=== PATIENT | female | born 1955 | race Two or more races ===

== ENCOUNTER 2020-02-08 14:36 | Outpatient (CLI) | payer MEDICARE | END 2020-02-08 23:59 | disposition home or self-care (01) | LOC: MSC 14:36 | PROVIDERS: ATTEND Internal Medicine | DX: I12.9 Hypertensive chronic kidney disease with stage 1 through stage 4 chronic kidney disease, or unspecified chronic kidney disease (principal); E11.22 Type 2 diabetes mellitus with diabetic chronic kidney disease; N18.4 Chronic kidney disease, stage 4 (severe); Z79.84 Long term (current) use of oral hypoglycemic drugs; K74.60 Unspecified cirrhosis of liver; J32.9 Chronic sinusitis, unspecified; R11.0 Nausea; F32.9 Major depressive disorder, single episode, unspecified; K21.9 Gastro-esophageal reflux disease without esophagitis; M35.00 Sjogren syndrome, unspecified; M81.0 Age-related osteoporosis without current pathological fracture; M19.90 Unspecified osteoarthritis, unspecified site; D64.9 Anemia, unspecified; E04.9 Nontoxic goiter, unspecified; R42 Dizziness and giddiness; Z79.899 Other long term (current) drug therapy ==

== ENCOUNTER 2020-07-25 13:19 | Outpatient (CLI) | payer MEDICARE, OTHER | END 2020-07-25 23:59 | disposition home or self-care (01) | LOC: MSC 13:19 | PROVIDERS: ATTEND Internal Medicine | DX: Z51.89 Encounter for other specified aftercare (principal); G47.00 Insomnia, unspecified; K74.69 Other cirrhosis of liver; E11.22 Type 2 diabetes mellitus with diabetic chronic kidney disease; I12.9 Hypertensive chronic kidney disease with stage 1 through stage 4 chronic kidney disease, or unspecified chronic kidney disease; N18.4 Chronic kidney disease, stage 4 (severe); J32.9 Chronic sinusitis, unspecified; M05.20 Rheumatoid vasculitis with rheumatoid arthritis of unspecified site; Z74.09 Other reduced mobility; D64.9 Anemia, unspecified; E04.9 Nontoxic goiter, unspecified; R42 Dizziness and giddiness; K21.9 Gastro-esophageal reflux disease without esophagitis; G60.9 Hereditary and idiopathic neuropathy, unspecified ==

== ENCOUNTER 2020-08-29 14:21 | Outpatient (CLI) | payer MEDICARE, OTHER ==
[2020-08-29 15:28] LABS: BASOPHILS % (AUTO) 0.6 % (0.0-2.0); EOSINOPHILS % (AUTO) 1.8 % (0.0-6.0); HEMATOCRIT 35 % (33-45); LYMPHOCYTES # (AUTO) 0.8 /CMM (0.8-4.8); LYMPHOCYTES % (AUTO) 14.1 % (20.0-44.0); MEAN CORPUSCULAR HGB CONC 34 g/dl (31.0-36.0); MEAN CORPUSCULAR VOLUME 89 fL (82-100); MONOCYTES # (AUTO) 0.6 /CMM (0.1-1.30); MONOCYTES % (AUTO) 10.4 % (2.0-12.0); NEUTROPHILS # (AUTO) 4.3 /CMM (1.8-8.9); NEUTROPHILS % (AUTO) 73.1 % (43.0-81.0); PLATELET COUNT (AUTO) 131 /CMM (150-450); RED BLOOD CELL COUNT(AUTO) 3.98 MIL/uL (4.0-5.2); WHITE BLOOD COUNT (AUTO) 5.8 K/uL (4.3-11.0)
[2020-08-29 15:47] LABS: ALBUMIN 3.7 g/dL (3.4-5.0); BILIRUBIN,TOTAL 0.3 mg/dL (0.2-1.0); CALCIUM, SERUM 9.2 mg/dL (8.5-10.1); CREATININE 2.2 mg/dL (0.6-1.3); PHOSPHORUS 3.5 mg/dL (2.5-4.9); POTASSIUM 4.9 mmol/L (3.5-5.1); TOTAL PROTEIN, SERUM 7.5 g/dL (6.4-8.2)
== END 2020-08-29 23:59 | disposition home or self-care (01) ==
LOC: MSC 14:21
PROVIDERS: ATTEND Internal Medicine
DX: G47.00 Insomnia, unspecified (principal); F32.9 Major depressive disorder, single episode, unspecified; E11.22 Type 2 diabetes mellitus with diabetic chronic kidney disease; I12.9 Hypertensive chronic kidney disease with stage 1 through stage 4 chronic kidney disease, or unspecified chronic kidney disease; N18.4 Chronic kidney disease, stage 4 (severe); Z79.84 Long term (current) use of oral hypoglycemic drugs; K74.60 Unspecified cirrhosis of liver; K21.9 Gastro-esophageal reflux disease without esophagitis; M81.0 Age-related osteoporosis without current pathological fracture; M35.00 Sjogren syndrome, unspecified; R11.0 Nausea; J32.9 Chronic sinusitis, unspecified; I77.6 Arteritis, unspecified; E04.9 Nontoxic goiter, unspecified; R42 Dizziness and giddiness; Z79.899 Other long term (current) drug therapy
CPT/HCPCS: 36415; 80053; 82306; 83036; 83970; 84100; 85025; 85652; G0463

== ENCOUNTER 2020-09-05 13:30 | Outpatient (CLI) | payer MEDICARE, OTHER | END 2020-09-05 23:59 | disposition home or self-care (01) | LOC: MSC 13:30 | PROVIDERS: ATTEND Internal Medicine | DX: G47.00 Insomnia, unspecified (principal); F32.9 Major depressive disorder, single episode, unspecified; E11.22 Type 2 diabetes mellitus with diabetic chronic kidney disease; I12.9 Hypertensive chronic kidney disease with stage 1 through stage 4 chronic kidney disease, or unspecified chronic kidney disease; N18.4 Chronic kidney disease, stage 4 (severe); Z79.84 Long term (current) use of oral hypoglycemic drugs; K74.60 Unspecified cirrhosis of liver; K21.9 Gastro-esophageal reflux disease without esophagitis; M35.00 Sjogren syndrome, unspecified; M81.0 Age-related osteoporosis without current pathological fracture; R11.0 Nausea; J32.9 Chronic sinusitis, unspecified; I77.6 Arteritis, unspecified; D64.9 Anemia, unspecified; E04.9 Nontoxic goiter, unspecified; R42 Dizziness and giddiness; Z79.899 Other long term (current) drug therapy ==

== ENCOUNTER 2020-12-01 10:59 | Outpatient (CLI) | payer MEDICARE, OTHER | END 2020-12-01 23:59 | disposition home or self-care (01) | LOC: MSC 10:59 | PROVIDERS: ATTEND Internal Medicine | DX: G62.9 Polyneuropathy, unspecified (principal); G47.00 Insomnia, unspecified; E11.22 Type 2 diabetes mellitus with diabetic chronic kidney disease; I12.9 Hypertensive chronic kidney disease with stage 1 through stage 4 chronic kidney disease, or unspecified chronic kidney disease; N18.4 Chronic kidney disease, stage 4 (severe); Z79.84 Long term (current) use of oral hypoglycemic drugs; K74.60 Unspecified cirrhosis of liver; F32.9 Major depressive disorder, single episode, unspecified; K21.9 Gastro-esophageal reflux disease without esophagitis; M35.00 Sjogren syndrome, unspecified; M81.0 Age-related osteoporosis without current pathological fracture; R11.0 Nausea; J32.9 Chronic sinusitis, unspecified; I77.6 Arteritis, unspecified; D64.9 Anemia, unspecified; Z79.899 Other long term (current) drug therapy ==

== ENCOUNTER 2020-12-15 03:00 | Outpatient (CLI) | payer MEDICARE, OTHER | END 2020-12-15 23:59 | disposition home or self-care (01) | LOC: MSC 03:00 | PROVIDERS: ATTEND Internal Medicine | DX: E11.22 Type 2 diabetes mellitus with diabetic chronic kidney disease (principal); I12.9 Hypertensive chronic kidney disease with stage 1 through stage 4 chronic kidney disease, or unspecified chronic kidney disease; N18.4 Chronic kidney disease, stage 4 (severe); Z79.84 Long term (current) use of oral hypoglycemic drugs; G62.9 Polyneuropathy, unspecified; G47.00 Insomnia, unspecified; K74.60 Unspecified cirrhosis of liver; F32.9 Major depressive disorder, single episode, unspecified; K21.9 Gastro-esophageal reflux disease without esophagitis; M35.00 Sjogren syndrome, unspecified; M81.0 Age-related osteoporosis without current pathological fracture; R11.0 Nausea; J32.9 Chronic sinusitis, unspecified; I77.6 Arteritis, unspecified; D64.9 Anemia, unspecified; E04.9 Nontoxic goiter, unspecified; R42 Dizziness and giddiness; Z79.899 Other long term (current) drug therapy ==

== ENCOUNTER 2020-12-22 08:44 | Outpatient (CLI) | payer MEDICARE, OTHER ==
[2020-12-22 09:17] LABS: BASOPHILS % (AUTO) 0.7 % (0.0-2.0); EOSINOPHILS % (AUTO) 3.5 % (0.0-6.0); HEMATOCRIT 37 % (33-45); HEMOGLOBIN 12.6 g/dL (11.5-14.8); LYMPHOCYTES # (AUTO) 0.8 /CMM (0.8-4.8); LYMPHOCYTES % (AUTO) 13.6 % (20.0-44.0); MEAN CORPUSCULAR HGB CONC 34 g/dl (31.0-36.0); MEAN CORPUSCULAR VOLUME 91 fL (82-100); MONOCYTES # (AUTO) 0.6 /CMM (0.1-1.30); MONOCYTES % (AUTO) 9.6 % (2.0-12.0); NEUTROPHILS # (AUTO) 4.2 /CMM (1.8-8.9); NEUTROPHILS % (AUTO) 72.6 % (43.0-81.0); PLATELET COUNT (AUTO) 121 /CMM (150-450); RED BLOOD CELL COUNT(AUTO) 4.07 MIL/uL (4.0-5.2); WHITE BLOOD COUNT (AUTO) 5.8 K/uL (4.3-11.0)
[2020-12-22 10:01] LABS: URINE TOTAL PROTEIN 25.7 mg/dL (0-11.9)
[2020-12-22 10:23] LABS: ALBUMIN 3.7 g/dL (3.4-5.0); BILIRUBIN,TOTAL 0.4 mg/dL (0.2-1.0); CALCIUM, SERUM 9.4 mg/dL (8.5-10.1); CREATININE 2.2 mg/dL (0.6-1.3); MAGNESIUM 2.2 mg/dL (1.8-2.4); PHOSPHORUS 3.5 mg/dL (2.5-4.9); POTASSIUM 4.9 mmol/L (3.5-5.1); TOTAL PROTEIN, SERUM 7.6 g/dL (6.4-8.2)
[2020-12-22 11:49] LABS: THYROID STIMULATING HORMONE 0.698 uIU/mL (0.358-3.74)
== END 2020-12-22 23:59 | disposition home or self-care (01) ==
LOC: LAB 08:44
PROVIDERS: ATTEND Internal Medicine
DX: K21.9 Gastro-esophageal reflux disease without esophagitis (principal); D64.9 Anemia, unspecified; K74.60 Unspecified cirrhosis of liver; Z79.899 Other long term (current) drug therapy
CPT/HCPCS: 36415; 80053-TC; 83735-TC; 84100-TC; 84133-TC; 84155-TC; 84300-TC; 84443-TC; 85025-TC

== ENCOUNTER 2021-01-19 10:12 | Outpatient (CLI) | payer MEDICARE, OTHER | END 2021-01-19 23:59 | disposition home or self-care (01) | LOC: MSC 10:12 | PROVIDERS: ATTEND Internal Medicine | DX: E11.22 Type 2 diabetes mellitus with diabetic chronic kidney disease (principal); I12.9 Hypertensive chronic kidney disease with stage 1 through stage 4 chronic kidney disease, or unspecified chronic kidney disease; N18.4 Chronic kidney disease, stage 4 (severe); Z79.84 Long term (current) use of oral hypoglycemic drugs; G62.9 Polyneuropathy, unspecified; G47.00 Insomnia, unspecified; K74.60 Unspecified cirrhosis of liver; F32.9 Major depressive disorder, single episode, unspecified; K21.9 Gastro-esophageal reflux disease without esophagitis; M35.00 Sjogren syndrome, unspecified; M81.0 Age-related osteoporosis without current pathological fracture; R11.0 Nausea; J32.9 Chronic sinusitis, unspecified; I77.6 Arteritis, unspecified; D64.9 Anemia, unspecified; E04.9 Nontoxic goiter, unspecified; Z79.899 Other long term (current) drug therapy ==

== ENCOUNTER 2021-02-21 11:20 | Outpatient (CLI) | payer MEDICARE, OTHER ==
[2021-02-21 12:39] LABS: ALBUMIN 3.8 g/dL (3.4-5.0); BILIRUBIN,TOTAL 0.5 mg/dL (0.2-1.0); CALCIUM, SERUM 9.1 mg/dL (8.5-10.1); CREATININE 2.1 mg/dL (0.6-1.3); POTASSIUM 4.6 mmol/L (3.5-5.1); TOTAL PROTEIN, SERUM 7.4 g/dL (6.4-8.2)
== END 2021-02-21 23:59 | disposition home or self-care (01) ==
LOC: MSC 11:20
PROVIDERS: ATTEND Internal Medicine
DX: R20.0 Anesthesia of skin (principal); B00.1 Herpesviral vesicular dermatitis; E11.22 Type 2 diabetes mellitus with diabetic chronic kidney disease; I12.9 Hypertensive chronic kidney disease with stage 1 through stage 4 chronic kidney disease, or unspecified chronic kidney disease; N18.4 Chronic kidney disease, stage 4 (severe); Z79.84 Long term (current) use of oral hypoglycemic drugs; G62.9 Polyneuropathy, unspecified; G47.00 Insomnia, unspecified; K74.60 Unspecified cirrhosis of liver; F32.9 Major depressive disorder, single episode, unspecified; K21.9 Gastro-esophageal reflux disease without esophagitis; M81.0 Age-related osteoporosis without current pathological fracture; J32.9 Chronic sinusitis, unspecified; I77.6 Arteritis, unspecified; E04.9 Nontoxic goiter, unspecified
CPT/HCPCS: 36415; 80053; 83036; G0463

== ENCOUNTER 2021-03-09 14:30 | Outpatient (CLI) | payer MEDICARE, OTHER | END 2021-03-09 23:59 | disposition home or self-care (01) | LOC: MSC 14:30 | PROVIDERS: ATTEND Internal Medicine | DX: R20.0 Anesthesia of skin (principal); B00.1 Herpesviral vesicular dermatitis; E11.22 Type 2 diabetes mellitus with diabetic chronic kidney disease; I12.9 Hypertensive chronic kidney disease with stage 1 through stage 4 chronic kidney disease, or unspecified chronic kidney disease; N18.4 Chronic kidney disease, stage 4 (severe); Z79.84 Long term (current) use of oral hypoglycemic drugs; E11.40 Type 2 diabetes mellitus with diabetic neuropathy, unspecified; G47.00 Insomnia, unspecified; K74.60 Unspecified cirrhosis of liver; F32.9 Major depressive disorder, single episode, unspecified; K21.9 Gastro-esophageal reflux disease without esophagitis; M35.00 Sjogren syndrome, unspecified; M81.0 Age-related osteoporosis without current pathological fracture; R11.0 Nausea; J32.9 Chronic sinusitis, unspecified; I77.6 Arteritis, unspecified; D64.9 Anemia, unspecified; E04.9 Nontoxic goiter, unspecified; R42 Dizziness and giddiness; Z79.899 Other long term (current) drug therapy ==

== ENCOUNTER 2021-03-15 09:24 | Outpatient (CLI) | payer MEDICARE, OTHER ==
[2021-03-15 10:15] LABS: CALCIUM, SERUM 8.7 mg/dL (8.5-10.1); POTASSIUM 5.1 mmol/L (3.5-5.1)
[2021-03-15 10:30] LABS: C-REACTIVE PROTEIN 0.3 mg/dL (0.0-0.9)
== END 2021-03-15 23:59 | disposition home or self-care (01) ==
LOC: LAB 09:24
PROVIDERS: ATTEND Internal Medicine
DX: I10 Essential (primary) hypertension (principal); K21.9 Gastro-esophageal reflux disease without esophagitis
CPT/HCPCS: 36415; 80048-TC; 85652-TC; 86140-TC

== ENCOUNTER 2021-04-06 10:30 | Outpatient (CLI) | payer MEDICARE, OTHER | END 2021-04-06 23:59 | disposition home or self-care (01) | LOC: MSC 10:30 | PROVIDERS: ATTEND Internal Medicine | DX: E11.22 Type 2 diabetes mellitus with diabetic chronic kidney disease (principal); I12.9 Hypertensive chronic kidney disease with stage 1 through stage 4 chronic kidney disease, or unspecified chronic kidney disease; N18.4 Chronic kidney disease, stage 4 (severe); Z79.84 Long term (current) use of oral hypoglycemic drugs; R20.0 Anesthesia of skin; B00.1 Herpesviral vesicular dermatitis; E11.40 Type 2 diabetes mellitus with diabetic neuropathy, unspecified; G47.00 Insomnia, unspecified; K74.60 Unspecified cirrhosis of liver; F32.9 Major depressive disorder, single episode, unspecified; K21.9 Gastro-esophageal reflux disease without esophagitis; M35.00 Sjogren syndrome, unspecified; M81.0 Age-related osteoporosis without current pathological fracture; R11.0 Nausea; J32.9 Chronic sinusitis, unspecified; I77.6 Arteritis, unspecified; R42 Dizziness and giddiness; Z79.899 Other long term (current) drug therapy ==

== ENCOUNTER 2021-05-02 09:26 | Outpatient (CLI) | payer MEDICARE, OTHER | END 2021-05-02 23:59 | disposition home or self-care (01) | LOC: MSC 09:26 | PROVIDERS: ATTEND Internal Medicine | DX: E79.0 Hyperuricemia without signs of inflammatory arthritis and tophaceous disease (principal); E11.22 Type 2 diabetes mellitus with diabetic chronic kidney disease; I12.9 Hypertensive chronic kidney disease with stage 1 through stage 4 chronic kidney disease, or unspecified chronic kidney disease; N18.4 Chronic kidney disease, stage 4 (severe); Z79.84 Long term (current) use of oral hypoglycemic drugs; R20.0 Anesthesia of skin; E11.40 Type 2 diabetes mellitus with diabetic neuropathy, unspecified; G47.00 Insomnia, unspecified; K74.60 Unspecified cirrhosis of liver; F32.9 Major depressive disorder, single episode, unspecified; K21.9 Gastro-esophageal reflux disease without esophagitis; M81.0 Age-related osteoporosis without current pathological fracture; R11.0 Nausea; J32.9 Chronic sinusitis, unspecified; I77.6 Arteritis, unspecified; D64.9 Anemia, unspecified; E04.9 Nontoxic goiter, unspecified; R42 Dizziness and giddiness; Z79.899 Other long term (current) drug therapy ==

== ENCOUNTER 2021-05-16 09:10 | Outpatient (CLI) | payer MEDICARE, OTHER ==
[2021-05-16 10:30] LABS: CALCIUM, SERUM 8.8 mg/dL (8.5-10.1); CREATININE 1.9 mg/dL (0.6-1.3); POTASSIUM 4.8 mmol/L (3.5-5.1)
[2021-05-16 10:40] LABS: C-REACTIVE PROTEIN 0.5 mg/dL (0.0-0.9)
[2021-05-16 10:42] LABS: ALBUMIN 3.6 g/dL (3.4-5.0); BILIRUBIN,TOTAL 0.5 mg/dL (0.2-1.0); PHOSPHORUS 2.8 mg/dL (2.5-4.9); TOTAL PROTEIN, SERUM 7.2 g/dL (6.4-8.2)
== END 2021-05-16 23:59 | disposition home or self-care (01) ==
LOC: LAB 09:10
PROVIDERS: ATTEND Internal Medicine
DX: E11.22 Type 2 diabetes mellitus with diabetic chronic kidney disease (principal); N18.4 Chronic kidney disease, stage 4 (severe)
CPT/HCPCS: 36415; 80053-TC; 83735-TC; 84100-TC; 85652-TC; 86140-TC

== ENCOUNTER 2021-05-23 09:16 | Outpatient (CLI) | payer MEDICARE, OTHER | END 2021-05-23 23:59 | disposition home or self-care (01) | LOC: MSC 09:16 | PROVIDERS: ATTEND Internal Medicine | DX: R20.0 Anesthesia of skin (principal); M54.50 Low back pain, unspecified; R11.0 Nausea; K21.9 Gastro-esophageal reflux disease without esophagitis; I12.9 Hypertensive chronic kidney disease with stage 1 through stage 4 chronic kidney disease, or unspecified chronic kidney disease; E11.22 Type 2 diabetes mellitus with diabetic chronic kidney disease; N18.4 Chronic kidney disease, stage 4 (severe); Z79.84 Long term (current) use of oral hypoglycemic drugs; G62.9 Polyneuropathy, unspecified; G47.00 Insomnia, unspecified; K74.60 Unspecified cirrhosis of liver; F32.9 Major depressive disorder, single episode, unspecified; M35.00 Sjogren syndrome, unspecified; M81.0 Age-related osteoporosis without current pathological fracture; J32.9 Chronic sinusitis, unspecified; I77.6 Arteritis, unspecified; D64.9 Anemia, unspecified; E04.9 Nontoxic goiter, unspecified; R42 Dizziness and giddiness; Z79.899 Other long term (current) drug therapy | CPT/HCPCS: 36415; 84550; G0463 ==

== ENCOUNTER 2021-05-29 11:28 | Outpatient (CLI) | payer MEDICARE, OTHER | END 2021-05-29 23:59 | disposition home or self-care (01) | LOC: MRI 11:28 | PROVIDERS: ATTEND Internal Medicine | DX: M47.27 Other spondylosis with radiculopathy, lumbosacral region (principal); M51.17 Intervertebral disc disorders with radiculopathy, lumbosacral region; M48.07 Spinal stenosis, lumbosacral region | CPT/HCPCS: 72148-TC ==

== ENCOUNTER 2021-06-06 09:18 | Outpatient (CLI) | payer MEDICARE, OTHER | END 2021-06-06 23:59 | disposition home or self-care (01) | LOC: MSC 09:18 | PROVIDERS: ATTEND Internal Medicine | DX: R11.0 Nausea (principal); R10.12 Left upper quadrant pain; K21.9 Gastro-esophageal reflux disease without esophagitis; M48.061 Spinal stenosis, lumbar region without neurogenic claudication; R20.0 Anesthesia of skin; E79.0 Hyperuricemia without signs of inflammatory arthritis and tophaceous disease; I12.9 Hypertensive chronic kidney disease with stage 1 through stage 4 chronic kidney disease, or unspecified chronic kidney disease; E11.22 Type 2 diabetes mellitus with diabetic chronic kidney disease; N18.4 Chronic kidney disease, stage 4 (severe); Z79.84 Long term (current) use of oral hypoglycemic drugs; E11.40 Type 2 diabetes mellitus with diabetic neuropathy, unspecified; B00.1 Herpesviral vesicular dermatitis; G47.00 Insomnia, unspecified; K74.60 Unspecified cirrhosis of liver; F32.9 Major depressive disorder, single episode, unspecified; M35.00 Sjogren syndrome, unspecified; M81.0 Age-related osteoporosis without current pathological fracture; J32.9 Chronic sinusitis, unspecified; I77.6 Arteritis, unspecified; D64.9 Anemia, unspecified; E04.9 Nontoxic goiter, unspecified; R42 Dizziness and giddiness; Z79.899 Other long term (current) drug therapy ==

== ENCOUNTER 2021-07-05 13:00 | Outpatient (CLI) | payer MEDICARE, OTHER | END 2021-07-05 23:59 | disposition home or self-care (01) | LOC: MSC 13:00 | PROVIDERS: ATTEND Internal Medicine | DX: Z51.89 Encounter for other specified aftercare (principal); R11.0 Nausea; M48.061 Spinal stenosis, lumbar region without neurogenic claudication; R12 Heartburn; K21.9 Gastro-esophageal reflux disease without esophagitis; R20.0 Anesthesia of skin; E79.0 Hyperuricemia without signs of inflammatory arthritis and tophaceous disease; I12.9 Hypertensive chronic kidney disease with stage 1 through stage 4 chronic kidney disease, or unspecified chronic kidney disease; E11.22 Type 2 diabetes mellitus with diabetic chronic kidney disease; N18.4 Chronic kidney disease, stage 4 (severe); Z79.84 Long term (current) use of oral hypoglycemic drugs; E11.40 Type 2 diabetes mellitus with diabetic neuropathy, unspecified; G47.00 Insomnia, unspecified; K74.60 Unspecified cirrhosis of liver; F32.A Depression, unspecified; M35.00 Sjogren syndrome, unspecified; M81.0 Age-related osteoporosis without current pathological fracture; J32.9 Chronic sinusitis, unspecified; I77.6 Arteritis, unspecified; D64.9 Anemia, unspecified; E04.9 Nontoxic goiter, unspecified; R42 Dizziness and giddiness; Z79.899 Other long term (current) drug therapy ==

== ENCOUNTER 2021-10-10 09:05 | Outpatient (CLI) | payer MEDICARE, OTHER | END 2021-10-10 23:59 | disposition home or self-care (01) | LOC: MSC 09:05 | PROVIDERS: ATTEND Internal Medicine | DX: F41.8 Other specified anxiety disorders (principal); G47.00 Insomnia, unspecified; E11.22 Type 2 diabetes mellitus with diabetic chronic kidney disease; I12.9 Hypertensive chronic kidney disease with stage 1 through stage 4 chronic kidney disease, or unspecified chronic kidney disease; N18.4 Chronic kidney disease, stage 4 (severe); Z79.84 Long term (current) use of oral hypoglycemic drugs; E11.40 Type 2 diabetes mellitus with diabetic neuropathy, unspecified; R11.0 Nausea; M48.061 Spinal stenosis, lumbar region without neurogenic claudication; R12 Heartburn; K21.9 Gastro-esophageal reflux disease without esophagitis; R20.0 Anesthesia of skin; E79.0 Hyperuricemia without signs of inflammatory arthritis and tophaceous disease; K74.60 Unspecified cirrhosis of liver; F32.A Depression, unspecified; M35.00 Sjogren syndrome, unspecified; M81.0 Age-related osteoporosis without current pathological fracture; J32.9 Chronic sinusitis, unspecified; I77.6 Arteritis, unspecified; D64.9 Anemia, unspecified; E04.9 Nontoxic goiter, unspecified; R42 Dizziness and giddiness; Z79.899 Other long term (current) drug therapy ==

== ENCOUNTER 2021-10-16 08:48 | Outpatient (CLI) | payer MEDICARE, OTHER ==
[2021-10-16 10:18] LABS: BASOPHILS % (AUTO) 0.7 % (0.0-2.0); EOSINOPHILS % (AUTO) 2.8 % (0.0-6.0); HEMATOCRIT 32 % (33-45); HEMOGLOBIN 10.8 g/dL (11.5-14.8); LYMPHOCYTES # (AUTO) 0.5 K/uL (0.8-4.8); LYMPHOCYTES % (AUTO) 17.5 % (20.0-44.0); MEAN CORPUSCULAR HGB CONC 34 g/dl (31.0-36.0); MEAN CORPUSCULAR VOLUME 92 fL (82-100); MONOCYTES # (AUTO) 0.3 K/uL (0.1-1.30); MONOCYTES % (AUTO) 11.9 % (2.0-12.0); NEUTROPHILS % (AUTO) 67.1 % (43.0-81.0); PLATELET COUNT (AUTO) 113 K/uL (150-450); RED BLOOD CELL COUNT(AUTO) 3.42 MIL/uL (4.0-5.2); WHITE BLOOD COUNT (AUTO) 2.9 K/uL (4.3-11.0)
[2021-10-16 10:21] LABS: BILIRUBIN,URINE NEGATIVE (NEGATIVE); COLOR,URINE YELLOW (YELLOW); LEUKOCYTE ESTERASE ,URINE NEGATIVE (NEGATIVE); NITRITE, URINE NEGATIVE (NEGATIVE); PROTEIN,URINE TRACE mg/dl (NEGATIVE); UGLUCOSE NEGATIVE (NEGATIVE); UROBILINOGEN,URINE 0.2 EU/dL (0.2)
[2021-10-16 10:48] LABS: URINE TOTAL PROTEIN 32.8 mg/dL (0-11.9)
[2021-10-16 10:52] LABS: RBC,URINE NONE SEEN /HPF (0-2)
[2021-10-16 10:53] LABS: BACTERIA,URINE None seen /HPF (None Seen); SQUAMOUS EPITHELIAL CELL,UR Rare /HPF (None Seen); WBC,URINE 0-2 /HPF (0-3)
[2021-10-16 10:54] LABS: C-REACTIVE PROTEIN 0.2 mg/dL (0.0-0.9); THYROID STIMULATING HORMONE 0.738 uIU/mL (0.358-3.74); URIC ACID 6.5 mg/dL (2.6-7.2)
[2021-10-16 12:07] LABS: ALBUMIN 3.7 g/dL (3.4-5.0); BILIRUBIN,TOTAL 0.6 mg/dL (0.2-1.0); CALCIUM, SERUM 9.1 mg/dL (8.5-10.1); CREATININE 1.8 mg/dL (0.6-1.3); MAGNESIUM 2.2 mg/dL (1.8-2.4); PHOSPHORUS 2.8 mg/dL (2.5-4.9); POTASSIUM 4.6 mmol/L (3.5-5.1); TOTAL PROTEIN, SERUM 7.3 g/dL (6.4-8.2)
== END 2021-10-16 23:59 | disposition home or self-care (01) ==
LOC: LAB 08:48
PROVIDERS: ATTEND Internal Medicine
DX: I12.9 Hypertensive chronic kidney disease with stage 1 through stage 4 chronic kidney disease, or unspecified chronic kidney disease (principal); E11.22 Type 2 diabetes mellitus with diabetic chronic kidney disease; N18.4 Chronic kidney disease, stage 4 (severe)
CPT/HCPCS: 36415; 80053-TC; 80061-TC; 81001; 82306; 82607-TC; 83735-TC; 84100-TC; 84155-TC; 84439-TC; 84443-TC; 84550-TC; 85025-TC; 85652-TC; 86140-TC

== ENCOUNTER → 2021-10-18 | Outpatient (CLI) | payer MEDICARE, OTHER | END | disposition home or self-care (01) | LOC: MSC 14:30 | PROVIDERS: ATTEND Internal Medicine | DX: E11.22 Type 2 diabetes mellitus with diabetic chronic kidney disease (principal); I12.9 Hypertensive chronic kidney disease with stage 1 through stage 4 chronic kidney disease, or unspecified chronic kidney disease; N18.4 Chronic kidney disease, stage 4 (severe); Z79.84 Long term (current) use of oral hypoglycemic drugs; F41.8 Other specified anxiety disorders; E11.40 Type 2 diabetes mellitus with diabetic neuropathy, unspecified; R11.0 Nausea; R10.12 Left upper quadrant pain; M54.9 Dorsalgia, unspecified; E79.0 Hyperuricemia without signs of inflammatory arthritis and tophaceous disease; R20.0 Anesthesia of skin; G47.00 Insomnia, unspecified; K74.60 Unspecified cirrhosis of liver; F32.9 Major depressive disorder, single episode, unspecified; K21.9 Gastro-esophageal reflux disease without esophagitis; M35.00 Sjogren syndrome, unspecified; M81.0 Age-related osteoporosis without current pathological fracture; J32.9 Chronic sinusitis, unspecified; I77.6 Arteritis, unspecified; D64.9 Anemia, unspecified; E04.9 Nontoxic goiter, unspecified; R42 Dizziness and giddiness; Z79.899 Other long term (current) drug therapy ==

== ENCOUNTER 2021-12-21 09:34 | Outpatient (CLI) | payer MEDICARE, OTHER | END 2021-12-21 23:59 | disposition home or self-care (01) | LOC: MSC 09:34 | PROVIDERS: ATTEND Internal Medicine | DX: F41.8 Other specified anxiety disorders (principal); E11.22 Type 2 diabetes mellitus with diabetic chronic kidney disease; I12.9 Hypertensive chronic kidney disease with stage 1 through stage 4 chronic kidney disease, or unspecified chronic kidney disease; N18.4 Chronic kidney disease, stage 4 (severe); Z79.84 Long term (current) use of oral hypoglycemic drugs; E11.40 Type 2 diabetes mellitus with diabetic neuropathy, unspecified; M54.9 Dorsalgia, unspecified; E79.0 Hyperuricemia without signs of inflammatory arthritis and tophaceous disease; G47.00 Insomnia, unspecified; K74.60 Unspecified cirrhosis of liver; F32.A Depression, unspecified; K21.9 Gastro-esophageal reflux disease without esophagitis; M35.00 Sjogren syndrome, unspecified; M81.0 Age-related osteoporosis without current pathological fracture; R11.0 Nausea; I77.6 Arteritis, unspecified; D64.9 Anemia, unspecified; E04.9 Nontoxic goiter, unspecified; R42 Dizziness and giddiness; Z79.899 Other long term (current) drug therapy ==

== ENCOUNTER 2022-02-20 09:36 | Outpatient (CLI) | payer MEDICARE, OTHER | END 2022-02-20 23:59 | disposition home or self-care (01) | LOC: MSC 09:36 | PROVIDERS: ATTEND Internal Medicine | DX: F41.8 Other specified anxiety disorders (principal); R63.0 Anorexia; Z68.22 Body mass index [BMI] 22.0-22.9, adult; E11.22 Type 2 diabetes mellitus with diabetic chronic kidney disease; I12.9 Hypertensive chronic kidney disease with stage 1 through stage 4 chronic kidney disease, or unspecified chronic kidney disease; N18.4 Chronic kidney disease, stage 4 (severe); Z79.84 Long term (current) use of oral hypoglycemic drugs; E11.40 Type 2 diabetes mellitus with diabetic neuropathy, unspecified; M54.9 Dorsalgia, unspecified; R11.0 Nausea; K21.9 Gastro-esophageal reflux disease without esophagitis; E79.0 Hyperuricemia without signs of inflammatory arthritis and tophaceous disease; G47.00 Insomnia, unspecified; K74.60 Unspecified cirrhosis of liver; F32.A Depression, unspecified; M35.00 Sjogren syndrome, unspecified; M81.0 Age-related osteoporosis without current pathological fracture; I77.6 Arteritis, unspecified; D64.9 Anemia, unspecified; E04.9 Nontoxic goiter, unspecified; R42 Dizziness and giddiness; Z79.899 Other long term (current) drug therapy ==

== ENCOUNTER 2022-04-10 09:16 | Outpatient (CLI) | payer MEDICARE, OTHER ==
[2022-04-10 10:06] LABS: BASOPHILS % (AUTO) 0.5 % (0.0-2.0); EOSINOPHILS % (AUTO) 2.3 % (0.0-6.0); HEMATOCRIT 29 % (33-45); HEMOGLOBIN 10.1 g/dL (11.5-14.8); LYMPHOCYTES # (AUTO) 0.5 K/uL (0.8-4.8); LYMPHOCYTES % (AUTO) 15.7 % (20.0-44.0); MEAN CORPUSCULAR HGB CONC 34 g/dl (31.0-36.0); MEAN CORPUSCULAR VOLUME 98 fL (82-100); MONOCYTES # (AUTO) 0.3 K/uL (0.1-1.30); MONOCYTES % (AUTO) 11.4 % (2.0-12.0); NEUTROPHILS % (AUTO) 70.1 % (43.0-81.0); PLATELET COUNT (AUTO) 114 K/uL (150-450); RED BLOOD CELL COUNT(AUTO) 3.02 MIL/uL (4.0-5.2); WHITE BLOOD COUNT (AUTO) 2.9 K/uL (4.3-11.0)
[2022-04-10 10:27] LABS: ALANINE AMINOTRANSFERASE 52 U/L (12-78); ALBUMIN 3.6 g/dL (3.4-5.0); ALKALINE PHOSPHATASE 112 U/L (46-116); ASPARTATE AMINOTRANSFERASE 44 U/L (15-37); BILIRUBIN,TOTAL 0.6 mg/dL (0.2-1.0); CALCIUM, SERUM 9.8 mg/dL (8.5-10.1); CARBON DIOXIDE 24 mmol/L (21-32); CHLORIDE 104 mmol/L (98-107); CREATININE 2.3 mg/dL (0.6-1.3); GLUCOSE 171 mg/dL (74-106); MAGNESIUM 1.8 mg/dL (1.8-2.4); PHOSPHORUS 4.2 mg/dL (2.5-4.9); POTASSIUM 4.9 mmol/L (3.5-5.1); SODIUM SERUM 137 mmol/L (136-145); TOTAL PROTEIN, SERUM 7.3 g/dL (6.4-8.2); UREA NITROGEN, BLOOD 36 mg/dL (7-18)
[2022-04-10 10:54] LABS: C-REACTIVE PROTEIN < 0.2 mg/dL (0.0-0.9)
== END 2022-04-10 23:59 | disposition home or self-care (01) ==
LOC: MSC 09:16
PROVIDERS: ATTEND Internal Medicine
DX: R11.0 Nausea (principal); R10.13 Epigastric pain; R10.12 Left upper quadrant pain; F32.A Depression, unspecified; F41.8 Other specified anxiety disorders; R63.0 Anorexia; Z68.29 Body mass index [BMI] 29.0-29.9, adult; E11.22 Type 2 diabetes mellitus with diabetic chronic kidney disease; N18.4 Chronic kidney disease, stage 4 (severe); Z79.84 Long term (current) use of oral hypoglycemic drugs; E11.40 Type 2 diabetes mellitus with diabetic neuropathy, unspecified; M54.9 Dorsalgia, unspecified; K21.9 Gastro-esophageal reflux disease without esophagitis; E79.0 Hyperuricemia without signs of inflammatory arthritis and tophaceous disease; G47.00 Insomnia, unspecified; K74.60 Unspecified cirrhosis of liver; M35.00 Sjogren syndrome, unspecified; M81.0 Age-related osteoporosis without current pathological fracture; I77.6 Arteritis, unspecified; D64.9 Anemia, unspecified; E04.9 Nontoxic goiter, unspecified; R42 Dizziness and giddiness; Z79.899 Other long term (current) drug therapy
CPT/HCPCS: 85025; 83735; 83036; 84100; 85652; 36415; 80053; 86140; G0463

== ENCOUNTER → 2022-04-17 | Outpatient (CLI) | payer MEDICARE, OTHER | END | disposition home or self-care (01) | LOC: MSC 11:30 | PROVIDERS: ATTEND Internal Medicine | DX: E11.22 Type 2 diabetes mellitus with diabetic chronic kidney disease (principal); I12.9 Hypertensive chronic kidney disease with stage 1 through stage 4 chronic kidney disease, or unspecified chronic kidney disease; N18.4 Chronic kidney disease, stage 4 (severe); Z79.84 Long term (current) use of oral hypoglycemic drugs; E79.0 Hyperuricemia without signs of inflammatory arthritis and tophaceous disease; R10.12 Left upper quadrant pain; F41.8 Other specified anxiety disorders; R63.0 Anorexia; M54.9 Dorsalgia, unspecified; R11.0 Nausea; K21.9 Gastro-esophageal reflux disease without esophagitis; E11.40 Type 2 diabetes mellitus with diabetic neuropathy, unspecified; G47.00 Insomnia, unspecified; K74.60 Unspecified cirrhosis of liver; F32.A Depression, unspecified; M81.0 Age-related osteoporosis without current pathological fracture; I77.6 Arteritis, unspecified; D64.9 Anemia, unspecified; E04.9 Nontoxic goiter, unspecified; R42 Dizziness and giddiness ==

== ENCOUNTER 2022-06-21 09:40 | Outpatient (CLI) | payer MEDICARE, OTHER | END 2022-06-21 23:59 | disposition home or self-care (01) | LOC: MSC 09:40 | PROVIDERS: ATTEND Internal Medicine | DX: Z09 Encounter for follow-up examination after completed treatment for conditions other than malignant neoplasm (principal); E11.22 Type 2 diabetes mellitus with diabetic chronic kidney disease; I12.9 Hypertensive chronic kidney disease with stage 1 through stage 4 chronic kidney disease, or unspecified chronic kidney disease; N18.4 Chronic kidney disease, stage 4 (severe); Z79.84 Long term (current) use of oral hypoglycemic drugs; B00.1 Herpesviral vesicular dermatitis; E11.40 Type 2 diabetes mellitus with diabetic neuropathy, unspecified; F41.8 Other specified anxiety disorders; M54.9 Dorsalgia, unspecified; R11.0 Nausea; E79.0 Hyperuricemia without signs of inflammatory arthritis and tophaceous disease; K21.9 Gastro-esophageal reflux disease without esophagitis; G47.00 Insomnia, unspecified; K74.60 Unspecified cirrhosis of liver; F32.A Depression, unspecified; M81.0 Age-related osteoporosis without current pathological fracture; I77.6 Arteritis, unspecified; D64.9 Anemia, unspecified; E04.9 Nontoxic goiter, unspecified; R42 Dizziness and giddiness; R53.83 Other fatigue | CPT/HCPCS: J3420 ×3; 96372 ==

== ENCOUNTER 2022-07-20 09:11 | Outpatient (CLI) | payer MEDICARE, OTHER ==
[2022-07-20 09:38] LABS: BASOPHILS % (AUTO) 0.7 % (0.0-2.0); EOSINOPHILS % (AUTO) 3.1 % (0.0-6.0); HEMATOCRIT 25 % (33-45); HEMOGLOBIN 8.6 g/dL (11.5-14.8); LYMPHOCYTES # (AUTO) 0.3 K/uL (0.8-4.8); LYMPHOCYTES % (AUTO) 16.6 % (20.0-44.0); MEAN CORPUSCULAR HGB CONC 35 g/dl (31.0-36.0); MEAN CORPUSCULAR VOLUME 105 fL (82-100); MONOCYTES # (AUTO) 0.1 K/uL (0.1-1.30); MONOCYTES % (AUTO) 8.4 % (2.0-12.0); NEUTROPHILS # (AUTO) 1.2 K/uL (1.8-8.9); NEUTROPHILS % (AUTO) 71.2 % (43.0-81.0); PLATELET COUNT (AUTO) 97 K/uL (150-450); RED BLOOD CELL COUNT(AUTO) 2.37 MIL/uL (4.0-5.2)
[2022-07-20 09:44] LABS: WHITE BLOOD COUNT (AUTO) 1.7 K/uL (4.3-11.0)
[2022-07-20 09:55] LABS: C-REACTIVE PROTEIN 0.3 mg/dL (0.0-0.9); URIC ACID 6.4 mg/dL (2.6-7.2)
[2022-07-20 10:26] LABS: ALBUMIN 3.6 g/dL (3.4-5.0); BILIRUBIN,TOTAL 0.8 mg/dL (0.2-1.0); CALCIUM, SERUM 9.5 mg/dL (8.5-10.1); MAGNESIUM 1.9 mg/dL (1.8-2.4); PHOSPHORUS 3.7 mg/dL (2.5-4.9); POTASSIUM 4.4 mmol/L (3.5-5.1); TOTAL PROTEIN, SERUM 7.5 g/dL (6.4-8.2)
[2022-07-21 05:17] LABS: BAND % (MANUAL) 6 % (0.0-5.0); EOSINOPHILS % (MANUAL) 0 % (0-4); LYMPHOCYTES % (MANUAL) 19 % (16-48); MONOCYTES % (MANUAL) 14 % (0-11.0); NEUTROPHILS % (MANUAL) 61 (42-76)
== END 2022-07-20 23:59 | disposition home or self-care (01) ==
LOC: LAB 09:11
PROVIDERS: ATTEND Internal Medicine
DX: I10 Essential (primary) hypertension (principal); Z00.00 Encounter for general adult medical examination without abnormal findings
CPT/HCPCS: 36415; 80053-TC; 82306; 82607-TC; 83735-TC; 84100-TC; 84550-TC; 85025-TC; 85652-TC; 86140-TC

== ENCOUNTER → 2022-07-20 | Outpatient (CLI) | payer MEDICARE, OTHER | END | disposition home or self-care (01) | LOC: MSC 09:16 | PROVIDERS: ATTEND Internal Medicine | DX: R53.83 Other fatigue (principal) | CPT/HCPCS: J3420 ×2; 96372 ==

== ENCOUNTER 2022-07-27 11:15 | Outpatient (CLI) | payer MEDICARE, OTHER | END 2022-07-27 23:59 | disposition home or self-care (01) | LOC: MSC 11:15 | PROVIDERS: ATTEND Internal Medicine | DX: D61.811 Other drug-induced pancytopenia (principal); T45.1X5A Adverse effect of antineoplastic and immunosuppressive drugs, initial encounter; E11.22 Type 2 diabetes mellitus with diabetic chronic kidney disease; I12.9 Hypertensive chronic kidney disease with stage 1 through stage 4 chronic kidney disease, or unspecified chronic kidney disease; N18.4 Chronic kidney disease, stage 4 (severe); Z79.84 Long term (current) use of oral hypoglycemic drugs; E11.40 Type 2 diabetes mellitus with diabetic neuropathy, unspecified; M54.9 Dorsalgia, unspecified; E79.0 Hyperuricemia without signs of inflammatory arthritis and tophaceous disease; G47.00 Insomnia, unspecified; K74.60 Unspecified cirrhosis of liver; F32.9 Major depressive disorder, single episode, unspecified; K21.9 Gastro-esophageal reflux disease without esophagitis; M81.0 Age-related osteoporosis without current pathological fracture; I77.6 Arteritis, unspecified; D64.9 Anemia, unspecified; E04.9 Nontoxic goiter, unspecified; R42 Dizziness and giddiness; R11.0 Nausea ==

== ENCOUNTER → 2022-07-31 | Outpatient (CLI) | payer MEDICARE, OTHER ==
[~2022-07-31] MED LIST: ALLO100T PO; AZAT50TA18 PO; BENA20TA9 PO; ESCI10TA PO; LACT10SO58 PO; LEVO500T90 PO; LINA5TAB PO; METO10TA3 PO; METO50TA7 PO; PROP10TA68 PO; VALA500T40 PO
== END | disposition home or self-care (01) ==
LOC: MSC 10:50
PROVIDERS: ATTEND Internal Medicine
DX: R11.0 Nausea (principal); R63.4 Abnormal weight loss; K21.9 Gastro-esophageal reflux disease without esophagitis; E11.22 Type 2 diabetes mellitus with diabetic chronic kidney disease; I12.9 Hypertensive chronic kidney disease with stage 1 through stage 4 chronic kidney disease, or unspecified chronic kidney disease; N18.4 Chronic kidney disease, stage 4 (severe); Z79.84 Long term (current) use of oral hypoglycemic drugs; E11.40 Type 2 diabetes mellitus with diabetic neuropathy, unspecified; D61.811 Other drug-induced pancytopenia; T45.1X5D Adverse effect of antineoplastic and immunosuppressive drugs, subsequent encounter; M54.9 Dorsalgia, unspecified; E79.0 Hyperuricemia without signs of inflammatory arthritis and tophaceous disease; G47.00 Insomnia, unspecified; K74.60 Unspecified cirrhosis of liver; F32.9 Major depressive disorder, single episode, unspecified; M81.0 Age-related osteoporosis without current pathological fracture; I77.6 Arteritis, unspecified; D64.9 Anemia, unspecified; R42 Dizziness and giddiness; E04.9 Nontoxic goiter, unspecified; M35.00 Sjogren syndrome, unspecified

== ENCOUNTER 2022-08-02 10:11 | Outpatient (CLI) | payer MEDICARE, OTHER ==
[2022-08-02] MEDS ORDERED: VALA500T40 PO (18:22)
[2022-08-02] MEDS ORDERED: AZAT50TA18 PO (18:22)
[2022-08-02] MEDS ORDERED: PROP10TA68 PO (18:22)
[2022-08-02] MEDS ORDERED: ESCI10TA PO (18:22)
[2022-08-02] MEDS ORDERED: LINA5TAB PO (18:22)
[2022-08-02] MEDS ORDERED: BENA20TA9 PO (18:22)
[2022-08-02] MEDS ORDERED: ALLO100T PO (18:22)
[2022-08-02] MEDS ORDERED: METO10TA3 PO (18:22)
[2022-08-05] MEDS ORDERED: LEVO500T90 PO (12:51)
[2022-08-05] MEDS ORDERED: METO50TA7 PO (12:51)
[2022-08-05] MEDS ORDERED: LACT10SO58 PO (12:51)
== END 2022-08-02 23:59 | disposition home or self-care (01) ==
LOC: CT 10:11
PROVIDERS: ATTEND Internal Medicine
DX: K57.30 Diverticulosis of large intestine without perforation or abscess without bleeding (principal); R10.9 Unspecified abdominal pain; K46.9 Unspecified abdominal hernia without obstruction or gangrene; R16.2 Hepatomegaly with splenomegaly, not elsewhere classified

== ENCOUNTER 2022-08-02 12:07 | Outpatient (CLI) | payer MEDICARE, OTHER ==
[2022-08-02] MEDS ORDERED: BENA20TA9 PO (18:22)
[2022-08-02] MEDS ORDERED: METO10TA3 PO (18:22)
[2022-08-02] MEDS ORDERED: AZAT50TA18 PO (18:22)
[2022-08-02] MEDS ORDERED: PROP10TA68 PO (18:22)
[2022-08-02] MEDS ORDERED: VALA500T40 PO (18:22)
[2022-08-02] MEDS ORDERED: ALLO100T PO (18:22)
[2022-08-02] MEDS ORDERED: LINA5TAB PO (18:22)
[2022-08-02] MEDS ORDERED: ESCI10TA PO (18:22)
== END 2022-08-02 23:59 | disposition home or self-care (01) ==
LOC: MSC 12:07
PROVIDERS: ATTEND Internal Medicine
DX: K52.9 Noninfective gastroenteritis and colitis, unspecified (principal); E11.22 Type 2 diabetes mellitus with diabetic chronic kidney disease; I12.9 Hypertensive chronic kidney disease with stage 1 through stage 4 chronic kidney disease, or unspecified chronic kidney disease; N18.4 Chronic kidney disease, stage 4 (severe); Z79.84 Long term (current) use of oral hypoglycemic drugs; E11.40 Type 2 diabetes mellitus with diabetic neuropathy, unspecified; D61.811 Other drug-induced pancytopenia; T45.1X5D Adverse effect of antineoplastic and immunosuppressive drugs, subsequent encounter; M54.9 Dorsalgia, unspecified; E79.0 Hyperuricemia without signs of inflammatory arthritis and tophaceous disease; G47.00 Insomnia, unspecified; K74.60 Unspecified cirrhosis of liver; F32.9 Major depressive disorder, single episode, unspecified; K21.9 Gastro-esophageal reflux disease without esophagitis; M81.0 Age-related osteoporosis without current pathological fracture; I77.6 Arteritis, unspecified; D64.9 Anemia, unspecified; R11.0 Nausea; R42 Dizziness and giddiness; E04.9 Nontoxic goiter, unspecified; M35.00 Sjogren syndrome, unspecified

== ENCOUNTER 2022-08-02 16:03 | Inpatient (IN) | payer MEDICARE, OTHER ==
[~2022-08-02] VITALS: Ht 160 cm; Wt 78.9 kg
[2022-08-02] MEDS ORDERED: ONDANSETRON HCL/PF 4 MG/2 ML VIAL IVP ONE (17:00)
[2022-08-02] MEDS ORDERED: IV NS 0.9% 1,000 ML BAG IV ONE (17:00)
[2022-08-02] MEDS ORDERED: ONDANSETRON HCL/PF 4 MG/2 ML VIAL ONE (17:14)
[2022-08-02] MEDS ORDERED: MORPHINE SULFATE INJ 4 MG/ML DISP.SYRIN ONE (17:14)
[2022-08-02] MEDS ORDERED: MORPHINE SULFATE INJ 10 MG/ML DISP.SYRIN IV ONE (17:30)
[2022-08-02] MEDS ORDERED: LINA5TAB PO (18:22)
[2022-08-02] MEDS ORDERED: ALLO100T PO (18:22)
[2022-08-02] MEDS ORDERED: VALA500T40 PO (18:22)
[2022-08-02] MEDS ORDERED: PROP10TA68 PO (18:22)
[2022-08-02] MEDS ORDERED: AZAT50TA18 PO (18:22)
[2022-08-02] MEDS ORDERED: ESCI10TA PO (18:22)
[2022-08-02] MEDS ORDERED: METO10TA3 PO (18:22)
[2022-08-02] MEDS ORDERED: BENA20TA9 PO (18:22)
--- NOTE | 2022-08-02 19:24 | NUR ---
BIBSelf c/o ab pain lower left side,
--- NOTE | 2022-08-02 19:25 | NUR ---
IV site Left hand gauge 20 patent flushing NS
--- NOTE | 2022-08-02 19:25 | NUR ---
COVID TEST TAKEN ON BED #4 COMPLETED AND TURNED INTO LAB
--- NOTE | 2022-08-02 19:25 | NUR ---
Blood labs drawn and sent to lab
[2022-08-02 20:05] LABS: BASOPHILS % (AUTO) 0.4 % (0.0-2.0); EOSINOPHILS % (AUTO) 0.9 % (0.0-6.0); HEMATOCRIT 21 % (33-45); HEMOGLOBIN 7.2 g/dL (11.5-14.8); LYMPHOCYTES # (AUTO) 0.3 K/uL (0.8-4.8); LYMPHOCYTES % (AUTO) 14.9 % (20.0-44.0); MEAN CORPUSCULAR HGB CONC 35 g/dl (31.0-36.0); MEAN CORPUSCULAR VOLUME 104 fL (82-100); MONOCYTES # (AUTO) 0.2 K/uL (0.1-1.30); MONOCYTES % (AUTO) 8.1 % (2.0-12.0); NEUTROPHILS # (AUTO) 1.5 K/uL (1.8-8.9); NEUTROPHILS % (AUTO) 75.7 % (43.0-81.0); PLATELET COUNT (AUTO) 75 K/uL (150-450)
[2022-08-02 20:16] LABS: RED BLOOD CELL COUNT(AUTO) 1.97 MIL/uL (4.0-5.2)
[2022-08-02 20:23] LABS: CALCIUM, SERUM 9.5 mg/dL (8.5-10.1); CREATININE 2.3 mg/dL (0.6-1.3); POTASSIUM 4.4 mmol/L (3.5-5.1)
[2022-08-02 20:32] LABS: ALBUMIN 3.4 g/dL (3.4-5.0); BILIRUBIN,DIRECT 0.2 mg/dL (0.0-0.2); BILIRUBIN,TOTAL 0.5 mg/dL (0.2-1.0); TOTAL PROTEIN, SERUM 6.8 g/dL (6.4-8.2)
--- NOTE | 2022-08-02 20:33 | NUR ---
IV LINE ESTABLISHED, LAC20G
--- NOTE | 2022-08-02 20:37 | NUR ---
TROP 86, AWARE
[2022-08-02 21:52] LABS: BILIRUBIN,URINE NEGATIVE (NEGATIVE); COLOR,URINE YELLOW (YELLOW); LEUKOCYTE ESTERASE ,URINE NEGATIVE (NEGATIVE); NITRITE, URINE NEGATIVE (NEGATIVE); PROTEIN,URINE NEGATIVE (NEGATIVE); UGLUCOSE NEGATIVE (NEGATIVE); UROBILINOGEN,URINE 0.2 EU/dL (0.2)
--- NOTE | 2022-08-02 21:55 | NUR ---
TROP 83
[2022-08-02 22:21] LABS: LYMPHOCYTES % (MANUAL) 14 % (16-48); MONOCYTES % (MANUAL) 6 % (0-11.0); NEUTROPHILS % (MANUAL) 80 (42-76)
--- NOTE | 2022-08-02 22:51 | NUR ---
REPORT GIVEN TO JAMMIE BORGES FOR [facility]
[2022-08-02 23:00] VITALS: BP 126/73
--- NOTE | 2022-08-02 23:11 | NUR ---
PRECISION INSTRUMENT MAKER NOTES RECEIVED PATIENT FROM ER AT 2300 WITH KAYY. PATIENT IS A/O TIMES 4. OMANI SPEAKER. ABLE TO UNDERSTAND BASIC LAO. NO PAIN NOTED. NO SOB NOTED. NO DISTRESS NOTED. ON ROOM AIR AND TOLERATING WELL. ABLE TO AMBULATE . GAIT IS STABLE. ON TELE MONITOR READING SR. OVERALL SKIN INTACT. IV SITE ON THE LAC G # 20 INTACT.ON IV HYDRATION OF NS AT 50 ML /HR. ABLE TO MAKE NEEDS KNOWN. AWAITING FOR PATIENT TO BE ADMITTED TO THE UNIT. PATIENT IS BEING TRANSFERRED TO [address] BUT WAITING FOR ADMISSION ORDERS. ALL SAFETY MEASURES IN PLACE. BED LOCKED IN THE LOWEST POSITION. CALL LIGHT AND TABLE IN EASY REACH. SIDE RAILS UP TIMES 2. WILL CONTINUE TO MONITOR CLOSELY.
[2022-08-03] VITALS (7 sets, daily range): BP systolic 120–146; BP diastolic 53–75
[2022-08-03] MEDS ORDERED: MAG HYDROX/AL HYDROX/SIMETH 30 ML UDC PO PRN (01:30)
[2022-08-03] MEDS ORDERED: *INSULIN REGULAR(HUMULIN R)HUM 100 UNIT/ML VIAL SQ PRN (01:30)
[2022-08-03] MEDS ORDERED: DEXTROSE 50%-WATER 50 ML DISP.SYRIN IV PRN (01:30)
[2022-08-03] MEDS ORDERED: ONDANSETRON HCL/PF 4 MG/2 ML VIAL IVP PRN (01:30)
[2022-08-03] MEDS ORDERED: ACETAMINOPHEN 325 MG TABLET PO PRN (01:30)
[2022-08-03 01:53] LABS: HEMOGLOBIN 6.6 g/dL (11.5-14.8)
--- NOTE | 2022-08-03 01:55 | NUR ---
RN NOTES MARLEN FROM LAB CALLED AT 0152 AND REPORTED CRITICAL LAB RESULT OF HEMOGLOBIN 6.6 AND HEMATOCRIT OF 19. INFORMED DR LEARY . NEW ORDER OF 1 UNIT RBC ORDERED.
[2022-08-03] MEDS ORDERED: CEFEPIME 1 GM in IV D5W 50 ML IV ONE (02:00)
[2022-08-03] MEDS: IV NS 0.9% 1,000 ML IV SCH ×2 (02:12→21:32)
[2022-08-03] MEDS ORDERED: CEFEPIME 1 GM VIAL ONE (02:51)
[2022-08-03] MEDS: BLOOD SUGAR DIAGNOSTIC 1 EACH STRIP VI SCH ×4 (06:35→21:33)
[2022-08-03 07:12] LABS: BILIRUBIN,URINE NEGATIVE (NEGATIVE); COLOR,URINE YELLOW (YELLOW); LEUKOCYTE ESTERASE ,URINE NEGATIVE (NEGATIVE); NITRITE, URINE NEGATIVE (NEGATIVE); PROTEIN,URINE NEGATIVE (NEGATIVE); UGLUCOSE NEGATIVE (NEGATIVE); UROBILINOGEN,URINE 0.2 EU/dL (0.2)
--- NOTE | 2022-08-03 07:28 | NUR ---
GRE TUTOR OPENING NOTES PT RECEIVED IN BED AWAKE, A/O X 4. EMIRATI SPEAKING AND SPEAKS MINIMAL CZECH. DENIES PAIN/DISCOMFORT AT THIS TIME. ON RA TOLERATING WELL, BREATHING EVEN AND UNLABORED, NO SIGNS OF ACUTE DISTRESS. IV ACCESS AT LAC #20G INTACT WITH ONGOING IVF OF NS @ 50ML/HR, NO S/S OF INFILTRATION NOTED. PT ON CHAIRMAN AND CHIEF EXECUTIVE OFFICER WITH CURRENT READING OF SR, HR 94 BPM, NO C/O CARDIAC DISTRESS VOICED AT THIS TIME. PT FOR BLOOD TRANSFUSION OF PRBC X1 TODAY, HGB 6.6. SAFETY MEASURES IN PLACE: CALL LIGHT WITHIN REACH, BED LOCKED AND ON THE LOWEST POSITION, SIDE RAILS UP X 2 AND TRAY TABLE W/I EASY REACH OF PT. WILL CONTINUE TO MONITOR PT.
--- NOTE | 2022-08-03 07:30 | NUR ---
SEARCH DIRECTOR CLOSING NOTES PATIENT IS A/O TIMES 4. URDU SPEAKER. ABLE TO UNDERSTAND BASIC CYMRAES. NO PAIN NOTED. NO SOB NOTED. NO DISTRESS NOTED. ON ROOM AIR AND TOLERATING WELL. ABLE TO AMBULATE . GAIT IS STABLE. ON TELE MONITOR READING SR. OVERALL SKIN INTACT. IV SITE ON THE LAC G # 20 INTACT.ON IV HYDRATION OF NS AT 50 ML /HR. ABLE TO MAKE NEEDS KNOWN. ALL DUE MEDS GIVEN ORDERED. ALL SAFETY MEASURES IN PLACE. BED LOCKED IN THE LOWEST POSITION. CALL LIGHT AND TABLE IN EASY REACH. SIDE RAILS UP TIMES 2. WILL ENDORSE FOR [place].
--- NOTE | 2022-08-03 08:31 | NUR ---
RN NOTES PT C/O MILD HEADACHE, PRN TYLENOL 650 MG PO GIVEN AT 0826.
--- NOTE | 2022-08-03 09:05 | NUR ---
RN NOTES PATIENT INITIATED BLOOD TRANSFUSION OF PRBC X1 UNIT AT 0904 VIA IV ACCESS ON LAC G# 20. V/S CHECKED, STABLE AND RECORDED. WILL MONITOR FOR ANY ADVERSE/ALLERGIC REACTIONS.
--- NOTE | 2022-08-03 09:22 | NUR ---
RN NOTES NO ADVERSE/ALLERGIC REACTIONS SUCH FEVER, RASH, SOB ETC AFTER 15MNUTES OF STARTING BLOOD TRANSFUSION. V/S CHECKED, STABLE AND RECORDED. WILL CONTINUE TO MONITOR.
[2022-08-03 09:50] LABS: THYROID STIMULATING HORMONE 0.632 uIU/mL (0.358-3.74)
[2022-08-03] MEDS: INSULIN REGULAR, HUMAN 100 UNIT/ML 3 ML VIAL SQ PRN ×2 (11:28→17:00)
--- NOTE | 2022-08-03 12:57 | NUR ---
RN NOTES BLOOD TRANSFUSIONS OF PRBC X1 UNIT (278ML) VIA IV ACCESS ON ON LAC G#20 COMPLETED AND TOLERATED. NO ADVERSE/ALLERGIC REACTIONS SUCH FEVER, RASH, SOB ETC, NOTED. S/P BLOOD TRANSFUSION V/S CHECKED, STABLE AND RECORDED.
[2022-08-03] MEDS: CEFEPIME 2 GM in IV D5W 100 ML IV SCH (14:03)
[2022-08-03 17:25] LABS: HEMOGLOBIN 7.9 g/dL (11.5-14.8)
--- NOTE | 2022-08-03 18:39 | NUR ---
TRAFFIC ASSISTANT CLOSING NOTES PT IN BED WATCHING TV AT THIS TIME. A/O X 4. URDU SPEAKING AND SPEAKS MINIMAL CROATIAN. ON RA TOLERATING WELL, BREATHING EVEN AND UNLABORED, NO SIGNS OF ACUTE DISTRESS NOTED DURING SHIFT. ON SOFTWARE INSTALLER WITH CURRENT READING OF SR, HR 82 BPM, NO C/O CARDIAC DISTRESS VOICED. IV ACCESS ON LAC #20G INTACT WITH IVF OF NS @ 50ML/HR INFUSING WELL, NO S/S OF INFILTRATION NOTED. ALL NEEDS AND CARE ATTENDED WELL. SAFETY MEASURES IN PLACE: CALL LIGHT WITHIN REACH, BED LOCKED AND ON THE LOWEST POSITION, SIDE RAILS UP X 2 AND TRAY TABLE W/I EASY REACH OF PT. WILL ENDORSE [facility] TO CHIEF TECHNICAL OFFICER NURSE.
--- NOTE | 2022-08-03 19:50 | NUR ---
GLAZE MAKER OPENING NOTE PT RECEIVED IN BED AWAKE, A/O X 4. [place] SPEAKING, AND SPEAKS MINIMAL [place]. DENIES PAIN, AND DISCOMFORT AT THIS TIME. ON RA TOLERATING WELL, BREATHING EVEN AND UNLABORED. NO S/S OF ACUTE DISTRESS. IV ACCESS TO LAC #20G INTACT WITH NS RUNNING @ 50ML/HR, NO S/S OF INFILTRATION NOTED. PT ON MIDDLE SCHOOL FRENCH TEACHER WITH CURRENT READING OF SR. SAFETY MEASURES IN PLACE: CALL LIGHT WITHIN REACH, BED LOCKED AND IN LOWEST POSITION, SIDE RAILS UP X 2, AND CALL LIGHT, AND TRAY TABLE WITHIN EASY REACH. WILL CONTINUE TO MONITOR PT.
[2022-08-03] MEDS: MORPHINE SULFATE INJ 2 MG/ML DISP.SYRIN IV PRN (20:35)
--- NOTE | 2022-08-03 20:35 | NUR ---
ANESTHESIOLOGY FACULTY NOTE PT REPORTS HAVING ABDOMINAL PAIN. MORPHINE ADMINISTERED TO PT FOR PAIN.
[2022-08-03 22:05] LABS: OCCULT BLOOD STOOL NEGATIVE (NEGATIVE)
[2022-08-04] VITALS: BP_SYST 140; BP_SYST 98; BP_DIAS 45; BP_DIAS 83
[2022-08-04 01:36] LABS: HEMOGLOBIN 7.6 g/dL (11.5-14.8)
[2022-08-04] MEDS: CEFEPIME 2 GM in IV D5W 100 ML IV SCH ×2 (03:44→19:18)
[2022-08-04 04:00] VITALS: BP 123/69
[2022-08-04 05:48] LABS: BASOPHILS % (AUTO) 0.4 % (0.0-2.0); EOSINOPHILS % (AUTO) 2.1 % (0.0-6.0); HEMATOCRIT 22 % (33-45); HEMOGLOBIN 7.6 g/dL (11.5-14.8); LYMPHOCYTES # (AUTO) 0.3 K/uL (0.8-4.8); LYMPHOCYTES % (AUTO) 19.2 % (20.0-44.0); MEAN CORPUSCULAR HGB CONC 35 g/dl (31.0-36.0); MEAN CORPUSCULAR VOLUME 103 fL (82-100); MONOCYTES # (AUTO) 0.2 K/uL (0.1-1.30); MONOCYTES % (AUTO) 8.8 % (2.0-12.0); NEUTROPHILS # (AUTO) 1.3 K/uL (1.8-8.9); NEUTROPHILS % (AUTO) 69.5 % (43.0-81.0); PLATELET COUNT (AUTO) 57 K/uL (150-450); RED BLOOD CELL COUNT(AUTO) 2.11 MIL/uL (4.0-5.2)
[2022-08-04 05:51] LABS: WHITE BLOOD COUNT (AUTO) 1.8 K/uL (4.3-11.0)
[2022-08-04 06:06] LABS: ALBUMIN 2.8 g/dL (3.4-5.0); BILIRUBIN,TOTAL 0.7 mg/dL (0.2-1.0); CALCIUM, SERUM 8.9 mg/dL (8.5-10.1); CREATININE 1.9 mg/dL (0.6-1.3); MAGNESIUM 1.7 mg/dL (1.8-2.4); PHOSPHORUS 3.4 mg/dL (2.5-4.9); POTASSIUM 4.4 mmol/L (3.5-5.1); TOTAL PROTEIN, SERUM 6.1 g/dL (6.4-8.2)
--- NOTE | 2022-08-04 06:30 | NUR ---
RN NOTE RECEIVED CALL FROM LAB. PT'S WBC LEVEL IS 1.8. WILL ENDORSE TO NEXT SHIFT NURSE.
--- NOTE | 2022-08-04 06:58 | NUR ---
SAGGER MAKER CLOSING NOTE LEFT PT SLEEPING IN BED, PT A/O X 4. DENIES PAIN, AND DISCOMFORT AT THIS TIME. ON RA TOLERATING WELL, BREATHING EVEN AND UNLABORED. NO S/S OF ACUTE DISTRESS. IV ACCESS TO LAC #20G INTACT WITH NS RUNNING @ 50ML/HR, NO S/S OF INFILTRATION NOTED. PT ON FLORICULTURE TEACHER WITH CURRENT READING OF SR. SAFETY MEASURES IN PLACE: CALL LIGHT WITHIN REACH, BED LOCKED AND IN LOWEST POSITION, SIDE RAILS UP X 2, AND CALL LIGHT WITHIN REACH. WILL PT TO AM SHIFT NURSE FOR [place].
[2022-08-04] MEDS: BLOOD SUGAR DIAGNOSTIC 1 EACH STRIP VI SCH ×4 (07:07→22:34)
[2022-08-04] MEDS: INSULIN REGULAR, HUMAN 100 UNIT/ML 3 ML VIAL SQ PRN ×4 (07:08→22:53)
--- NOTE | 2022-08-04 07:59 | NUR ---
RN OPENING NOTE RECEIVED PATIENT SLEEPING IN THE BED, AO X 4 [place] SPEAKING. ABLE TO RESPONDS ALL STIMULI. RESPIRATORY EVEN AND UNLABORED IN ROOM AIR. IN NO RESPIRATORY DISTRESS OBSERVED. SKIN IS WARM TO TOUCH, KEEP CLEAN/DRY. KEPT ELEVATED HOB FOR ASPIRATION PRECAUTION/ENSURE AIRWAY, ALSO LOWEST BED POSITIONED. BED ALARM IS ON AT ALL THE TIME FOR SAFETY. CALL LIGHT WITHIN REACH, WILL CONTINUE TO MONITOR
--- NOTE | 2022-08-04 07:59 | NUR ---
RN OPENING NOTE RECEIVED PATIENT SLEEPING IN THE BED, AO X 4 UKRAINIAN SPEAKING. ABLE TO RESPONDS ALL STIMULI. RESPIRATORY EVEN AND UNLABORED IN ROOM AIR. IN NO RESPIRATORY DISTRESS OBSERVED. SKIN IS WARM TO TOUCH, KEEP CLEAN/DRY. KEPT ELEVATED HOB FOR ASPIRATION PRECAUTION/ENSURE AIRWAY, ALSO LOWEST BED POSITIONED. BED ALARM IS ON AT ALL THE TIME FOR SAFETY. CALL LIGHT WITHIN REACH, WILL CONTINUE TO MONITOR. PATIENT IS ON HD, RECEIVED CRITICAL CREATININE LEVEL: 8.2, WILL DOCUMENT IN THE INTERVENTION. Addendum: 08/04/22 at 0805 by TOM ZEPEDA RN ERROR
[2022-08-04 08:00] VITALS: BP 126/63
[2022-08-04] MEDS: MORPHINE SULFATE INJ 2 MG/ML DISP.SYRIN IV PRN (09:00)
[2022-08-04] MEDS ORDERED: MAGNESIUM OXIDE 400 MG TABLET PO ONE (09:00)
[2022-08-04] MEDS: METOPROLOL SUCCINATE 50 MG TAB.SR.24H PO SCH (09:41)
[2022-08-04 10:10] LABS: HEMOGLOBIN 8.1 g/dL (11.5-14.8)
[2022-08-04 10:54] LABS: BASOPHILS % (MANUAL) 0 % (0.0-2.0); EOSINOPHILS % (MANUAL) 3 % (0-4); LYMPHOCYTES % (MANUAL) 19 % (16-48); MONOCYTES % (MANUAL) 6 % (0-11.0); NEUTROPHILS % (MANUAL) 72 (42-76)
--- NOTE | 2022-08-04 15:56 | NUR ---
PATIENT C/O ABDOMINAL PAIN, HOWEVER, PATIENT HAS NO ACCESS OF IV LINE AND TYLENOL PO HAS BEEN D/C. NEW ORDER MORPHINE 4MG IM. NOTED AND CARRY OUT.
[2022-08-04 16:00] VITALS: BP 138/88
[2022-08-04] MEDS ORDERED: MORPHINE SULFATE INJ 4 MG/ML DISP.SYRIN IM ONE (16:00)
[2022-08-04] MEDS ORDERED: LACTULOSE 10 G/15 ML UDC (PYXIS) PO PRN (17:00)
[2022-08-04] MEDS ORDERED: BISACODYL SUPP (10 MG) 10 MG/SUPP.RECT SUPP.RECT RC PRN (17:00)
--- NOTE | 2022-08-04 17:25 | NUR ---
THE PATIENT IS DUE ON IV ABX MAXIPIME 2GM AT 15OO, HOWEVER, IV ACCESS IS NOT AVAILABLE. THE MD AND PHARMACY WAS MADE AWARE AND WILL START IV ABX SOON IV ACCESS AVAILABLE.
[2022-08-04 17:26] LABS: HEMOGLOBIN 8.4 g/dL (11.5-14.8)
--- NOTE | 2022-08-04 18:54 | NUR ---
RN CLOSING NOTE PATIENT RESTING IN BED. IN NO ACUTE DISTRESS OBSERVED. RESPIRATORY EVEN AND UNLABORED IN ROOM AIR. IN NO RESPIRATORY DISTRESS NOTED. SKIN IS WARM TO TOUCH KEEP CLEAN/DRY. KEPT ELEVATED HOB FOR ENSURE AIRWAY/ASPIRATION PRECAUTION, AND LOWEST BED POSITION. BED ALARM IS ON AT ALL THE TIME FOR SAFETY. CALL LIGHT WITHIN REACH, WILL ENDORSE GEODETIC SURVEYOR TECHNOLOGIST.
[2022-08-04] MEDS: IV NS 0.9% 1,000 ML IV SCH (19:25)
--- NOTE | 2022-08-04 19:30 | NUR ---
MS RN OPENING NOTE RECEIVED PATIENT FROM MORNING SHIFT NURSE; PATIENT IS ALERT AND ORIENTED X 4, FRENCH SPEAKING BUT CAN UNDERSTAND A LITTLE YAKUT; ABLE TO MAKE NEEDS KNOWN; ON ROOM AIR, BREATHING EVENLY AND NO RESPIRATORY DISTRESS NOTED; S/P 1 UNIT PRBC BLOOD TRANSFUSION; WITH IV ACCESS IN LAC G20 WITH NORMAL SALINE RUNNING AT 50ML/HR; ENCOURAGED VERBALIZATION OF NEEDS; SAFETY PRECAUTIONS IMPLEMENTED, BED IN LOW POSITION, LOCKED, SIDE RAILS UP X 3, CALL LIGHT WITHIN REACH; WILL CONTINUE TO MONITOR THROUGHOUT SHIFT
[2022-08-04 20:00] VITALS: BP 118/65
--- NOTE | 2022-08-04 23:00 | NUR ---
MS RN NOTE UPON CHECKING, BLOOD SUGAR WAS 137. ADMINISTERED 2 UNITS OF INSULIN.
[2022-08-05 01:31] LABS: HEMOGLOBIN 7.8 g/dL (11.5-14.8)
[2022-08-05] MEDS: CEFEPIME 2 GM in IV D5W 100 ML IV SCH (02:34)
--- NOTE | 2022-08-05 05:43 | NUR ---
MS RN NOTE PATIENT REFUSED TO HAVE SOAP SUDS ENEMA AFTER HAVING LARGE BOWEL MOVEMENT FOLLOWING LACTULOSE ADMINISTRATION
[2022-08-05 05:47] LABS: BASOPHILS % (AUTO) 0.6 % (0.0-2.0); EOSINOPHILS % (AUTO) 2.1 % (0.0-6.0); HEMATOCRIT 24 % (33-45); HEMOGLOBIN 8.1 g/dL (11.5-14.8); LYMPHOCYTES # (AUTO) 0.3 K/uL (0.8-4.8); LYMPHOCYTES % (AUTO) 14.2 % (20.0-44.0); MEAN CORPUSCULAR HGB CONC 35 g/dl (31.0-36.0); MEAN CORPUSCULAR VOLUME 106 fL (82-100); MONOCYTES # (AUTO) 0.2 K/uL (0.1-1.30); MONOCYTES % (AUTO) 10.9 % (2.0-12.0); NEUTROPHILS # (AUTO) 1.6 K/uL (1.8-8.9); NEUTROPHILS % (AUTO) 72.2 % (43.0-81.0); PLATELET COUNT (AUTO) 55 K/uL (150-450); RED BLOOD CELL COUNT(AUTO) 2.22 MIL/uL (4.0-5.2); WHITE BLOOD COUNT (AUTO) 2.2 K/uL (4.3-11.0)
[2022-08-05 05:55] LABS: CALCIUM, SERUM 8.9 mg/dL (8.5-10.1); CREATININE 1.9 mg/dL (0.6-1.3); MAGNESIUM 1.9 mg/dL (1.8-2.4); PHOSPHORUS 3.4 mg/dL (2.5-4.9); POTASSIUM 4.4 mmol/L (3.5-5.1)
[2022-08-05 05:56] LABS: OCCULT BLOOD STOOL NEGATIVE (NEGATIVE)
[2022-08-05] MEDS: BLOOD SUGAR DIAGNOSTIC 1 EACH STRIP VI SCH ×2 (06:30→12:35)
--- NOTE | 2022-08-05 06:47 | NUR ---
MS RN CLOSING NOTE PATIENT IS ALERT AND ORIENTED X 4, VIETNAMESE SPEAKING BUT CAN UNDERSTAND A LITTLE ESTONIAN; ABLE TO MAKE NEEDS KNOWN; ON ROOM AIR, BREATHING EVENLY AND NO RESPIRATORY DISTRESS NOTED; S/P 1 UNIT PRBC BLOOD TRANSFUSION; WITH IV ACCESS IN LAC G20 WITH NORMAL SALINE RUNNING AT 50ML/HR; ADMINISTERED MEDICATIONS PRESCRIBED; PATIENT'S NEEDS ATTENDED; MONITORED ACCORDINGLY; SAFETY PRECAUTIONS IMPLEMENTED, BED IN LOW POSITION, LOCKED, SIDE RAILS UP X 3, CALL LIGHT WITHIN REACH; WILL ENDORSE TO AM NURSE FOR CONTINUITY OF CARE
[2022-08-05] MEDS: INSULIN REGULAR, HUMAN 100 UNIT/ML 3 ML VIAL SQ PRN ×2 (07:08→12:32)
--- NOTE | 2022-08-05 07:30 | NUR ---
PT RECEIVED RESTING COMFORTABLY IN BED. NO S/S OR C/O PAIN OR DISTRESS NOTED. SIDE RAILS UP X2, CALL LIGHT LEFT WITHIN REACH. WILL CONTINUE PLAN OF CARE.
[2022-08-05 08:00] VITALS: BP 121/63
[2022-08-05] MEDS: METOPROLOL SUCCINATE 50 MG TAB.SR.24H PO SCH (08:44)
[2022-08-05 09:00] VITALS: BP 121/63
[2022-08-05 09:37] LABS: HEMOGLOBIN 8.3 g/dL (11.5-14.8)
[2022-08-05] MEDS ORDERED: METO50TA7 PO (12:51)
[2022-08-05] MEDS ORDERED: LEVO500T90 PO (12:51)
[2022-08-05] MEDS ORDERED: LACT10SO58 PO (12:51)
[2022-08-05] MEDS ORDERED: METOCLOPRAMIDE HCL 10 MG TABLET PO SCH (13:00)
--- NOTE | 2022-08-05 15:30 | NUR ---
DISCHARGE INSTRUCTIONS GIVEN ORDERED. ENCOURAGED TO FOLLOW UP WITH PMD INSTRUCTED. ALL QUESTIONS AND CONCERNS ADDRESSED. PATIENT VERBALIZED UNDERSTANDING. MEDICATION RECONCILIATION FORM COMPLETED AND COPY GIVEN TO PATIENT. IV REMOVED WITH CATHETER INTACT, PRESSURE DRESSING APPLIED. PATIENT TAKEN TO VEHICLE WITH ALL PERSONAL BELONGINGS, ACCOMPANIED BY STAFF AND FAMILY MEMBER. NO DISTRESS NOTED AT TIME OF DEPARTURE.
[2022-08-05 22:25] LABS: BAND % (MANUAL) 2 % (0.0-5.0); LYMPHOCYTES % (MANUAL) 14 % (16-48); MONOCYTES % (MANUAL) 8 % (0-11.0); NEUTROPHILS % (MANUAL) 76 (42-76)
[2022-08-06] MEDS ORDERED: LINAGLIPTIN 5 MG TABLET PO SCH (09:00)
[2022-08-06] MEDS ORDERED: ALLOPURINOL 100 MG TABLET PO SCH (09:00)
[2022-08-06] MEDS ORDERED: PROPRANOLOL HCL 10 MG TABLET PO SCH (09:00)
[2022-08-06] MEDS ORDERED: BENAZEPRIL HCL 20 MG TABLET PO SCH (09:00)
[2022-08-06] MEDS ORDERED: ESCITALOPRAM OXALATE (10 MG) 10 MG TABLET PO SCH (09:00)
[2022-08-06] MEDS ORDERED: VALACYCLOVIR HCL 500 MG TABLET PO SCH (09:00)
== END 2022-08-05 15:30 | disposition home or self-care (01) | DRG 280 ==
LOC: ER 16:10 → TELE 22:36 → MED 08-04 09:53
PROVIDERS: ADMIT Nurse Practitioner Acute Care; ATTEND Nurse Practitioner Acute Care
PROC: 30233N1 Transfusion of Nonautologous Red Blood Cells into Peripheral Vein, Percutaneous Approach (ICD-10-PCS; principal; 2022-08-03)
PROC: 05HF33Z Insertion of Infusion Device into Left Cephalic Vein, Percutaneous Approach (ICD-10-PCS; 2022-08-04)
DX: I25.10 Atherosclerotic heart disease of native coronary artery without angina pectoris (principal); I21.4 Non-ST elevation (NSTEMI) myocardial infarction; N17.0 Acute kidney failure with tubular necrosis; D61.818 Other pancytopenia; N18.4 Chronic kidney disease, stage 4 (severe); I85.10 Secondary esophageal varices without bleeding; E44.0 Moderate protein-calorie malnutrition; Z20.822 Contact with and (suspected) exposure to COVID-19; K80.20 Calculus of gallbladder without cholecystitis without obstruction; K57.30 Diverticulosis of large intestine without perforation or abscess without bleeding; Z79.84 Long term (current) use of oral hypoglycemic drugs; Z79.899 Other long term (current) drug therapy; Z68.30 Body mass index [BMI] 30.0-30.9, adult; E66.9 Obesity, unspecified; Z98.890 Other specified postprocedural states; D70.9 Neutropenia, unspecified; D63.8 Anemia in other chronic diseases classified elsewhere; K31.9 Disease of stomach and duodenum, unspecified; D69.6 Thrombocytopenia, unspecified; R16.1 Splenomegaly, not elsewhere classified; I77.6 Arteritis, unspecified; K59.00 Constipation, unspecified; F32.A Depression, unspecified; K74.60 Unspecified cirrhosis of liver; D53.9 Nutritional anemia, unspecified; K52.9 Noninfective gastroenteritis and colitis, unspecified; D50.9 Iron deficiency anemia, unspecified
CPT/HCPCS: 36410; 36415; 71045-TC; 80048-TC; 80053-TC; 80076-TC; 82140-TC; 82272-TC; 82728-TC; 82962-TC; 83540-TC; 83605-TC; 83690-TC; 83735-TC; 84100-TC; 84439-TC; 84443-TC; 84484-TC; 85025-TC; 85027-TC; 85652-TC; 85730-TC; 86850-TC; 87040-TC; 87081-TC; 93307-TC; C9803; G0378; J0692; J1815; J2270; J2405; J7030; J7060; J8597; P9016

== ENCOUNTER → 2022-08-06 | Outpatient (CLI) | payer MEDICARE, OTHER ==
[~2022-08-06] MED LIST changes: -AZAT50TA18 PO
== END | disposition home or self-care (01) ==
LOC: MSC 14:00
PROVIDERS: ATTEND Internal Medicine
DX: K52.9 Noninfective gastroenteritis and colitis, unspecified (principal); D61.811 Other drug-induced pancytopenia; T45.1X5D Adverse effect of antineoplastic and immunosuppressive drugs, subsequent encounter; E11.22 Type 2 diabetes mellitus with diabetic chronic kidney disease; I12.9 Hypertensive chronic kidney disease with stage 1 through stage 4 chronic kidney disease, or unspecified chronic kidney disease; N18.4 Chronic kidney disease, stage 4 (severe); Z79.84 Long term (current) use of oral hypoglycemic drugs; E11.40 Type 2 diabetes mellitus with diabetic neuropathy, unspecified; G47.00 Insomnia, unspecified; F32.9 Major depressive disorder, single episode, unspecified; K21.9 Gastro-esophageal reflux disease without esophagitis; M81.0 Age-related osteoporosis without current pathological fracture; I77.6 Arteritis, unspecified; D64.9 Anemia, unspecified; K74.60 Unspecified cirrhosis of liver; R11.0 Nausea; R42 Dizziness and giddiness; E79.0 Hyperuricemia without signs of inflammatory arthritis and tophaceous disease; M54.9 Dorsalgia, unspecified; E04.9 Nontoxic goiter, unspecified; M35.00 Sjogren syndrome, unspecified

== ENCOUNTER → 2022-08-13 | Outpatient (CLI) | payer MEDICARE, OTHER | END | disposition home or self-care (01) | LOC: MSC 13:00 | PROVIDERS: ATTEND Internal Medicine | DX: K52.9 Noninfective gastroenteritis and colitis, unspecified (principal); R19.7 Diarrhea, unspecified; E11.22 Type 2 diabetes mellitus with diabetic chronic kidney disease; I12.9 Hypertensive chronic kidney disease with stage 1 through stage 4 chronic kidney disease, or unspecified chronic kidney disease; N18.4 Chronic kidney disease, stage 4 (severe); Z79.84 Long term (current) use of oral hypoglycemic drugs; E11.40 Type 2 diabetes mellitus with diabetic neuropathy, unspecified; D61.811 Other drug-induced pancytopenia; T45.1X5D Adverse effect of antineoplastic and immunosuppressive drugs, subsequent encounter; K74.60 Unspecified cirrhosis of liver; M54.9 Dorsalgia, unspecified; E79.0 Hyperuricemia without signs of inflammatory arthritis and tophaceous disease; G47.00 Insomnia, unspecified; F32.9 Major depressive disorder, single episode, unspecified; K21.9 Gastro-esophageal reflux disease without esophagitis; M81.0 Age-related osteoporosis without current pathological fracture; I77.6 Arteritis, unspecified; D64.9 Anemia, unspecified; R11.0 Nausea; R42 Dizziness and giddiness; E04.9 Nontoxic goiter, unspecified; M35.00 Sjogren syndrome, unspecified ==

== ENCOUNTER 2022-10-04 08:58 | Outpatient (CLI) | payer MEDICARE, OTHER ==
[2022-10-04 10:47] LABS: BASOPHILS % (AUTO) 0.4 % (0.0-2.0); EOSINOPHILS % (AUTO) 1.8 % (0.0-6.0); HEMATOCRIT 30 % (33-45); HEMOGLOBIN 10.1 g/dL (11.5-14.8); LYMPHOCYTES # (AUTO) 0.5 K/uL (0.8-4.8); LYMPHOCYTES % (AUTO) 14.4 % (20.0-44.0); MEAN CORPUSCULAR HGB CONC 33 g/dl (31.0-36.0); MEAN CORPUSCULAR VOLUME 102 fL (82-100); MONOCYTES # (AUTO) 0.3 K/uL (0.1-1.30); MONOCYTES % (AUTO) 8.7 % (2.0-12.0); NEUTROPHILS # (AUTO) 2.7 K/uL (1.8-8.9); NEUTROPHILS % (AUTO) 74.7 % (43.0-81.0); PLATELET COUNT (AUTO) 81 K/uL (150-450); RED BLOOD CELL COUNT(AUTO) 2.98 MIL/uL (4.0-5.2); WHITE BLOOD COUNT (AUTO) 3.6 K/uL (4.3-11.0)
[2022-10-04 12:07] LABS: ALBUMIN 3.6 g/dL (3.4-5.0); BILIRUBIN,TOTAL 0.6 mg/dL (0.2-1.0); CALCIUM, SERUM 9.6 mg/dL (8.5-10.1); CREATININE 1.9 mg/dL (0.6-1.3); PHOSPHORUS 3.3 mg/dL (2.5-4.9); POTASSIUM 4.8 mmol/L (3.5-5.1); TOTAL PROTEIN, SERUM 7.8 g/dL (6.4-8.2)
[2022-10-04 13:30] LABS: C-REACTIVE PROTEIN 0.3 mg/dL (0.0-0.9); THYROID STIMULATING HORMONE 1.109 uIU/mL (0.358-3.74)
[2022-10-04 16:32] LABS: LYMPHOCYTES % (MANUAL) 19 % (16-48); MONOCYTES % (MANUAL) 4 % (0-11.0); NEUTROPHILS % (MANUAL) 77 (42-76)
== END 2022-10-04 23:59 | disposition home or self-care (01) ==
LOC: MSC 08:58
PROVIDERS: ATTEND Internal Medicine
DX: F32.9 Major depressive disorder, single episode, unspecified (principal); D61.811 Other drug-induced pancytopenia; T45.1X5D Adverse effect of antineoplastic and immunosuppressive drugs, subsequent encounter; K52.9 Noninfective gastroenteritis and colitis, unspecified; D64.9 Anemia, unspecified; E11.22 Type 2 diabetes mellitus with diabetic chronic kidney disease; I12.9 Hypertensive chronic kidney disease with stage 1 through stage 4 chronic kidney disease, or unspecified chronic kidney disease; N18.4 Chronic kidney disease, stage 4 (severe); Z79.84 Long term (current) use of oral hypoglycemic drugs; E11.40 Type 2 diabetes mellitus with diabetic neuropathy, unspecified; K74.60 Unspecified cirrhosis of liver; M54.9 Dorsalgia, unspecified; E79.0 Hyperuricemia without signs of inflammatory arthritis and tophaceous disease; G47.00 Insomnia, unspecified; K21.9 Gastro-esophageal reflux disease without esophagitis; M81.0 Age-related osteoporosis without current pathological fracture; I77.6 Arteritis, unspecified; R11.0 Nausea; R42 Dizziness and giddiness; E04.9 Nontoxic goiter, unspecified; M35.00 Sjogren syndrome, unspecified
CPT/HCPCS: 80061; 85025; 83735; 83036; 84100; 85652; 84439; 82746; 84443; 82607; 80053; 86140; 82306; 85007; G0463; 36415

== ENCOUNTER 2022-10-10 14:00 | Outpatient (CLI) | payer MEDICARE, OTHER | END 2022-10-10 23:59 | disposition home or self-care (01) | LOC: MSC 14:00 | PROVIDERS: ATTEND Internal Medicine | DX: R30.0 Dysuria (principal); R35.0 Frequency of micturition; R39.11 Hesitancy of micturition; J98.8 Other specified respiratory disorders; E11.22 Type 2 diabetes mellitus with diabetic chronic kidney disease; I12.9 Hypertensive chronic kidney disease with stage 1 through stage 4 chronic kidney disease, or unspecified chronic kidney disease; N18.4 Chronic kidney disease, stage 4 (severe); Z79.84 Long term (current) use of oral hypoglycemic drugs; E11.40 Type 2 diabetes mellitus with diabetic neuropathy, unspecified; K74.60 Unspecified cirrhosis of liver; F32.9 Major depressive disorder, single episode, unspecified; D61.811 Other drug-induced pancytopenia; T45.1X5D Adverse effect of antineoplastic and immunosuppressive drugs, subsequent encounter; K52.9 Noninfective gastroenteritis and colitis, unspecified; K21.9 Gastro-esophageal reflux disease without esophagitis; D64.9 Anemia, unspecified; M54.9 Dorsalgia, unspecified; E79.0 Hyperuricemia without signs of inflammatory arthritis and tophaceous disease; G47.00 Insomnia, unspecified; M81.0 Age-related osteoporosis without current pathological fracture; R11.0 Nausea; I77.6 Arteritis, unspecified; R42 Dizziness and giddiness; E04.9 Nontoxic goiter, unspecified; M35.00 Sjogren syndrome, unspecified ==

== ENCOUNTER → 2022-10-15 | Outpatient (CLI) | payer MEDICARE, OTHER | END | disposition home or self-care (01) | LOC: MSC 16:45 | PROVIDERS: ATTEND Internal Medicine | DX: J06.9 Acute upper respiratory infection, unspecified (principal); E11.22 Type 2 diabetes mellitus with diabetic chronic kidney disease; I12.9 Hypertensive chronic kidney disease with stage 1 through stage 4 chronic kidney disease, or unspecified chronic kidney disease; N18.4 Chronic kidney disease, stage 4 (severe); Z79.84 Long term (current) use of oral hypoglycemic drugs; E11.40 Type 2 diabetes mellitus with diabetic neuropathy, unspecified; K74.60 Unspecified cirrhosis of liver; F32.9 Major depressive disorder, single episode, unspecified; D61.811 Other drug-induced pancytopenia; T45.1X5D Adverse effect of antineoplastic and immunosuppressive drugs, subsequent encounter; K52.9 Noninfective gastroenteritis and colitis, unspecified; K21.9 Gastro-esophageal reflux disease without esophagitis; D64.9 Anemia, unspecified; M54.9 Dorsalgia, unspecified; E79.0 Hyperuricemia without signs of inflammatory arthritis and tophaceous disease; G47.00 Insomnia, unspecified; M81.0 Age-related osteoporosis without current pathological fracture; R11.0 Nausea; I77.6 Arteritis, unspecified; R42 Dizziness and giddiness; E04.9 Nontoxic goiter, unspecified; M35.00 Sjogren syndrome, unspecified ==

== ENCOUNTER 2022-10-18 10:41 | Outpatient (CLI) | payer MEDICARE, OTHER | END 2022-10-18 23:59 | disposition home or self-care (01) | LOC: MSC 10:41 | PROVIDERS: ATTEND Internal Medicine | DX: J06.9 Acute upper respiratory infection, unspecified (principal); E11.22 Type 2 diabetes mellitus with diabetic chronic kidney disease; I12.9 Hypertensive chronic kidney disease with stage 1 through stage 4 chronic kidney disease, or unspecified chronic kidney disease; N18.4 Chronic kidney disease, stage 4 (severe); Z79.84 Long term (current) use of oral hypoglycemic drugs; E11.40 Type 2 diabetes mellitus with diabetic neuropathy, unspecified; K74.60 Unspecified cirrhosis of liver; F32.9 Major depressive disorder, single episode, unspecified; D61.811 Other drug-induced pancytopenia; T45.1X5D Adverse effect of antineoplastic and immunosuppressive drugs, subsequent encounter; K52.9 Noninfective gastroenteritis and colitis, unspecified; K21.9 Gastro-esophageal reflux disease without esophagitis; D64.9 Anemia, unspecified; M54.9 Dorsalgia, unspecified; E79.0 Hyperuricemia without signs of inflammatory arthritis and tophaceous disease; G47.00 Insomnia, unspecified; M81.0 Age-related osteoporosis without current pathological fracture; R11.0 Nausea; I77.6 Arteritis, unspecified; R42 Dizziness and giddiness; E04.9 Nontoxic goiter, unspecified; M35.00 Sjogren syndrome, unspecified ==

== ENCOUNTER 2022-11-20 10:14 | Outpatient (CLI) | payer MEDICARE, OTHER ==
[2022-11-20 12:16] LABS: BILIRUBIN,URINE NEGATIVE (NEGATIVE); COLOR,URINE YELLOW (YELLOW); LEUKOCYTE ESTERASE ,URINE NEGATIVE (NEGATIVE); NITRITE, URINE NEGATIVE (NEGATIVE); PROTEIN,URINE 1+ mg/dl (NEGATIVE); UGLUCOSE NEGATIVE (NEGATIVE); URINE TOTAL PROTEIN 35.9 mg/dL (0-11.9); UROBILINOGEN,URINE 0.2 EU/dL (0.2)
[2022-11-20 12:17] LABS: BACTERIA,URINE Rare /HPF (None Seen); SQUAMOUS EPITHELIAL CELL,UR Few /HPF (None Seen); WBC,URINE 0-2 /HPF (0-3)
[2022-11-20 12:19] LABS: ALBUMIN 3.5 g/dL (3.4-5.0); BILIRUBIN,TOTAL 0.5 mg/dL (0.2-1.0); CALCIUM, SERUM 9.2 mg/dL (8.5-10.1); CREATININE 1.9 mg/dL (0.6-1.3); MAGNESIUM 2.2 mg/dL (1.8-2.4); PHOSPHORUS 2.6 mg/dL (2.5-4.9); TOTAL PROTEIN, SERUM 7.8 g/dL (6.4-8.2)
[2022-11-20 12:23] LABS: BASOPHILS % (AUTO) 0.4 % (0.0-2.0); EOSINOPHILS % (AUTO) 1.8 % (0.0-6.0); HEMATOCRIT 31 % (33-45); HEMOGLOBIN 10.4 g/dL (11.5-14.8); LYMPHOCYTES # (AUTO) 0.4 K/uL (0.8-4.8); LYMPHOCYTES % (AUTO) 13.4 % (20.0-44.0); MEAN CORPUSCULAR HGB CONC 34 g/dl (31.0-36.0); MEAN CORPUSCULAR VOLUME 97 fL (82-100); MONOCYTES # (AUTO) 0.3 K/uL (0.1-1.30); MONOCYTES % (AUTO) 8.4 % (2.0-12.0); NEUTROPHILS # (AUTO) 2.4 K/uL (1.8-8.9); PLATELET COUNT (AUTO) 90 K/uL (150-450); RED BLOOD CELL COUNT(AUTO) 3.19 MIL/uL (4.0-5.2); WHITE BLOOD COUNT (AUTO) 3.2 K/uL (4.3-11.0)
[2022-11-20 12:28] LABS: C-REACTIVE PROTEIN 0.8 mg/dL (0.0-0.9); PREALBUMIN 16.4 MG/DL (18.0-35.7); THYROID STIMULATING HORMONE 0.826 uIU/mL (0.358-3.74)
== END 2022-11-20 23:59 | disposition home or self-care (01) ==
LOC: MSC 10:14
PROVIDERS: ATTEND Internal Medicine
DX: R63.4 Abnormal weight loss (principal); E11.22 Type 2 diabetes mellitus with diabetic chronic kidney disease; I12.9 Hypertensive chronic kidney disease with stage 1 through stage 4 chronic kidney disease, or unspecified chronic kidney disease; N18.4 Chronic kidney disease, stage 4 (severe); Z79.84 Long term (current) use of oral hypoglycemic drugs; E11.40 Type 2 diabetes mellitus with diabetic neuropathy, unspecified; K74.60 Unspecified cirrhosis of liver; F32.9 Major depressive disorder, single episode, unspecified; D61.811 Other drug-induced pancytopenia; T45.1X5D Adverse effect of antineoplastic and immunosuppressive drugs, subsequent encounter; K52.9 Noninfective gastroenteritis and colitis, unspecified; D64.9 Anemia, unspecified; E79.0 Hyperuricemia without signs of inflammatory arthritis and tophaceous disease; G47.00 Insomnia, unspecified; M81.0 Age-related osteoporosis without current pathological fracture; I77.6 Arteritis, unspecified
CPT/HCPCS: 85025; 83735; 83036; 84100; 85652; 81001; 84439; 82746; 84443; 80053; 84134; 86140; 84156; 82306; 82043; G0463; 36415

== ENCOUNTER 2022-11-27 09:30 | Outpatient (CLI) | payer MEDICARE, OTHER | END 2022-11-27 23:59 | disposition home or self-care (01) | LOC: MSC 09:30 | PROVIDERS: ATTEND Internal Medicine | DX: R31.9 Hematuria, unspecified (principal); R63.4 Abnormal weight loss; D61.811 Other drug-induced pancytopenia; T45.1X5D Adverse effect of antineoplastic and immunosuppressive drugs, subsequent encounter; E11.22 Type 2 diabetes mellitus with diabetic chronic kidney disease; I12.9 Hypertensive chronic kidney disease with stage 1 through stage 4 chronic kidney disease, or unspecified chronic kidney disease; N18.4 Chronic kidney disease, stage 4 (severe); Z79.84 Long term (current) use of oral hypoglycemic drugs; E11.40 Type 2 diabetes mellitus with diabetic neuropathy, unspecified; K74.60 Unspecified cirrhosis of liver; F32.9 Major depressive disorder, single episode, unspecified; K52.9 Noninfective gastroenteritis and colitis, unspecified; D64.9 Anemia, unspecified; E79.0 Hyperuricemia without signs of inflammatory arthritis and tophaceous disease; G47.00 Insomnia, unspecified; M81.0 Age-related osteoporosis without current pathological fracture; I77.6 Arteritis, unspecified ==

== ENCOUNTER 2023-12-12 11:30 | Outpatient (CLI) | payer MEDICARE, OTHER | END 2023-12-12 23:59 | disposition home or self-care (01) | LOC: MSC 11:30 | PROVIDERS: ATTEND Internal Medicine | DX: R60.0 Localized edema (principal); K74.60 Unspecified cirrhosis of liver; E11.22 Type 2 diabetes mellitus with diabetic chronic kidney disease; I12.9 Hypertensive chronic kidney disease with stage 1 through stage 4 chronic kidney disease, or unspecified chronic kidney disease; N18.4 Chronic kidney disease, stage 4 (severe); Z79.84 Long term (current) use of oral hypoglycemic drugs; E11.40 Type 2 diabetes mellitus with diabetic neuropathy, unspecified; D64.9 Anemia, unspecified; D61.811 Other drug-induced pancytopenia; R42 Dizziness and giddiness; G47.00 Insomnia, unspecified; E79.0 Hyperuricemia without signs of inflammatory arthritis and tophaceous disease; R11.0 Nausea; K21.9 Gastro-esophageal reflux disease without esophagitis; M81.0 Age-related osteoporosis without current pathological fracture; R31.9 Hematuria, unspecified; F32.9 Major depressive disorder, single episode, unspecified ==